=== PATIENT | female | born 1985 | race Caucasian/White ===

== ENCOUNTER → 2016-08-29 | Outpatient (CLI) | payer BC | END | disposition home or self-care (01) | LOC: LABWHC1 09:28 | PROVIDERS: ATTEND Physician Assistant Medical | DX: O26.90 Pregnancy related conditions, unspecified, unspecified trimester (principal); Z3A.00 Weeks of gestation of pregnancy not specified | CPT/HCPCS: 36415; 84702 ==

== ENCOUNTER 2016-09-09 14:07 | Emergency (ER) | payer BC ==
[2016-09-09 14:55] LABS: Appearance,Urine Cloudy (Clear); Bilirubin,Urine Negative (Negative); Glucose,Urine (UA) Negative (Negative); Ketones,Urine Negative (Negative); Leukocyte Esterase,Urine Large (Negative); Mucus,Urine Rare /hpf; Nitrite,Urine Negative (Negative); Particle Count 4579; Protein,Urine Negative (Negative); RBC,Urine 7 /hpf (0-5); Specific Gravity,Urine 1.021 (1.001-1.035); Squamous Epithelial Cell,Urine 4 /hpf (0-4); UA Billing (MACRO vs. MICRO) MICRO; Urobilinogen,Urine <2.0 mg/dL (<2.0); WBC,Urine 25 /hpf (0-5)
[2016-09-09] MEDS ORDERED: NITROFURANTOIN MONOHYD/M-CRYST 100 MG CAP PO STA (15:21)
[2016-09-09] MEDS ORDERED: PHENAZOPYRIDINE 100 MG TAB PO STA (15:21)
--- NOTE | 2016-09-09 15:22 | ED ---
Female Urogenital HPI - General Chief complaint: Urogenital Stated complaint: Abdomen Pain Time Seen by Provider: 09/09/16 14:22 Source: patient Mode of arrival: ambulatory Limitations: no limitations - History of Present Illness MD Complaint: dysuria, pelvic pain Onset/Timin -: days(s) Location: suprapubic Radiation: non-radiating Severity: mild Quality: cramping Consistency: constant Improves with: none Worsens with: urination - Related Data Home Medications Medication Instructions Recorded Confirmed Hyoscyamine Sulfate [Levbid] 0.375 mg PO BID 11/21/15 06/16/16 Hyoscyamine Sulfate [Levsin] 0.125 mg SUBLINGUAL Q4H 11/21/15 06/16/16 Lysine 500 mg PO DAILY 11/21/15 06/16/16 Sertraline [Zoloft] 25 mg PO DAILY 11/21/15 06/16/16 Verapamil HCl [Verapamil ER] 120 mg PO DAILY 11/21/15 06/16/16 Fluticasone/Vilanterol [Breo 1 puff INHALATION RT-BID 12/01/15 06/16/16 Ellipta 200-25 Mcg INH] Ibuprofen [Motrin] 800 mg PO Q8HR PRN 06/16/16 06/16/16 Naltrexone HCl/Bupropion HCl 2 tab PO BID 06/16/16 06/16/16 [Contrave ER 8-90 mg Tablet] Previous Rx's Medication Instructions Recorded Diazepam [Valium] 5 mg PO HS #10 tab 06/16/16 Hydrocodone/Acetaminophen [[place] 1 each PO Q4HR PRN #10 tab 06/16/16 5-325] Ibuprofen [Motrin] 600 mg PO Q6HR PRN #20 tab 06/16/16 Orphenadrine [Norflex] 100 mg PO Q12H #20 tablet.er 06/16/16 Nitrofurantoin Monohyd/M-Cryst 100 mg PO Q12HR #6 cap 09/09/16 [Macrobid] Phenazopyridine [Pyridium] 100 mg PO TID #6 tablet 09/09/16 Allergies Allergy/AdvReac Type Severity Reaction Status Date / Time azithromycin Allergy Rash/Hives Verified 06/16/16 07:44 [From Zithromax Z-Isauro] cephalexin monohydrate Allergy Rash/Hives Verified 06/16/16 07:44 [From Keflex] sulfamethoxazole Allergy Rash/Hives Verified 06/16/16 07:44 [From Bactrim] trimethoprim [From Bactrim] Allergy Rash/Hives Verified 06/16/16 07:44 Review of Systems ROS Statement: Those systems with pertinent positive or pertinent negative responses have been documented in the HPI. ROS Other: All systems not noted in ROS Statement are negative. Constitutional: Denies: fever, chills Respiratory: Denies: cough, dyspnea Cardiovascular: Denies: chest pain, palpitations, edema Gastrointestinal: Reports: as per HPI, abdominal pain. Denies: nausea, vomiting , diarrhea, constipation Genitourinary: Reports: urgency, dysuria, frequency. Denies: hematuria, discharge, abnormal menses, dyspareunia Musculoskeletal: Denies: back pain Skin: Denies: rash Neurological: Denies: headache Past Medical History Additional Past Medical History / Comment(s): migraine, GI issues, ovarian cyst History of Any Multi-Drug Resistant Organisms: C-DIFF Date of last positivie culture/infection: 01/2015 Past Surgical History: Appendectomy, Breast Surgery Additional Past Surgical History / Comment(s): IUD INSERTION 01/2013. BENIGN TUMOR REMOVED FROM BREAST Past Anesthesia/Blood Transfusion Reactions: No Reported Reaction Past Psychological History: Anxiety, Depression Smoking Status: Current every day smoker Past Alcohol Use History: Occasional Past Drug Use History: None Reported - Past Family History Mother Family Medical History: No Reported History General Exam Limitations: no limitations General appearance: alert, in no apparent distress Head exam: Present: atraumatic, normocephalic Respiratory exam: Present: normal lung sounds bilaterally. Absent: respiratory distress, wheezes, rales, rhonchi, stridor Cardiovascular Exam: Present: regular rate, normal rhythm, normal heart sounds. Absent: systolic murmur, diastolic murmur, rubs, gallop GI/Abdominal exam: Present: soft. Absent: distended, tenderness, guarding, rebound, rigid, mass, hernia Extremities exam: Present: normal inspection, normal capillary refill. Absent: pedal edema, calf tenderness Back exam: Absent: CVA tenderness (R), CVA tenderness (L) Skin exam: Present: warm, dry, intact, normal color. Absent: rash Course Vital Signs 09/09/16 09/09/16 14:09 15:57 Temperature 99.8 F H 99.7 F H Pulse Rate 87 82 Respiratory 20 18 Rate Blood Pressure 167/79 159/84 O2 Sat by Pulse 98 99 Oximetry Medical Decision Making - Lab Data Lab Results 09/09/16 09/09/16 Range/Units 14:30 14:30 Urine Color Yellow Urine Appearance Cloudy H (Clear) Urine pH 6.0 (5.0-8.0) Ur Specific [place] 1.021 (1.001-1.035) Urine Protein Negative (Negative) Urine Glucose (UA) Negative (Negative) Urine Ketones Negative (Negative) Urine Blood Negative (Negative) Urine Nitrate Negative (Negative) Urine Bilirubin Negative (Negative) Urine Urobilinogen <2.0 (<2.0) mg/dL Ur Leukocyte Esterase Large H (Negative) Urine RBC 7 H (0-5) /hpf Urine WBC 25 H (0-5) /hpf Ur Squamous Epith Cells 4 (0-4) /hpf Urine Mucus Rare H (None) /hpf Urine HCG, Qual Not Detected (Not Detectd) Disposition Clinical Impression: Urinary tract infection Disposition: HOME SELF-CARE Condition: Fair Instructions: Urinary Tract Infection in Women (ED) Prescriptions: Nitrofurantoin Monohyd/M-Cryst [Macrobid] 100 mg PO Q12HR #6 cap Phenazopyridine [Pyridium] 100 mg PO TID #6 tablet Referrals: Margy Crowell DO [Primary Care Provider] - 1-2 days
[2016-09-09 15:58] VITALS: BP 159/84; PULSE 82; RESP 18; TEMP 99.7
== END 2016-09-09 15:57 | disposition home or self-care (01) ==
LOC: EC 14:07
DX: N39.0 Urinary tract infection, site not specified (principal); F41.9 Anxiety disorder, unspecified; F32.9 Major depressive disorder, single episode, unspecified; Z79.899 Other long term (current) drug therapy; Z88.1 Allergy status to other antibiotic agents; Z88.2 Allergy status to sulfonamides; F17.200 Nicotine dependence, unspecified, uncomplicated; Z90.49 Acquired absence of other specified parts of digestive tract; Z86.69 Personal history of other diseases of the nervous system and sense organs; Z87.42 Personal history of other diseases of the female genital tract
CPT/HCPCS: 81001; 81025; 99284

== ENCOUNTER → 2016-10-23 | Outpatient (CLI) | payer BC ==
--- NOTE | 2016-10-23 20:37 | US ---
EXAMINATION TYPE: US kidneys/renal and bladder DATE OF EXAM: 10/23/2016 4:50 PM COMPARISON: NONE CLINICAL HISTORY: R10.9 Flank Pain left right. EXAM MEASUREMENTS: Right Kidney: 11.7 x 3.5 x 5.4 cm Left Kidney: 11.3 x 6.3 x 5.5 cm Right Kidney: No hydronephrosis or masses seen Left Kidney: inferior pole obscured by overlying bowel gas, appears wnl Bladder: wnl Bilateral Jets seen: Yes There is no evidence for hydronephrosis at this point in time. No nephrolithiasis is seen. No angella s are identified. The urinary bladder is anechoic. Bilateral ureteral jets are seen. IMPRESSION: No definite abnormality identified.
== END | disposition home or self-care (01) ==
LOC: RADUSWWP 16:20
PROVIDERS: ATTEND Family Medicine
DX: N39.0 Urinary tract infection, site not specified (principal); R10.9 Unspecified abdominal pain
CPT/HCPCS: 76770

== ENCOUNTER 2017-05-09 18:01 | Emergency (ER) | payer BC ==
[2017-05-09 18:08] VITALS: BP 150/67; PULSE 89; RESP 16; TEMP 98.8
--- NOTE | 2017-05-09 18:47 | ED ---
Extremity Problem HPI - General Chief complaint: Extremity Problem,Nontraumatic Stated complaint: left elbow pain Time Seen by Provider: 05/09/17 18:23 Source: patient, RN notes reviewed Mode of arrival: ambulatory Limitations: no limitations - History of Present Illness Initial comments: This is a 31-year-old female who presents to the emergency department with chief complaint of left elbow pain. She denies any specific injury or trauma. Patient states that approximately 2-3 weeks ago she began to experience intermittent left elbow pain. Over the last 2-3 days the pain has increased in frequency and intensity. She states pain is only present with movement of her elbow. She describes the pain as sharp and shooting, sometimes with radiation to her left hand. She reports that sometimes her left hand feels numb. At its worst, she rates the pain as 9/10. Currently pain is rated 5/10. Denies any back pain or neck pain. Denies fever, chills, chest pain, shortness of breath, abdominal pain, nausea or vomiting, constipation or diarrhea, dysuria or hematuria, headache or vision changes. - Related Data Home Medications Medication Instructions Recorded Confirmed Hyoscyamine Sulfate [Levbid] 0.375 mg PO BID 11/21/15 06/16/16 Hyoscyamine Sulfate [Levsin] 0.125 mg SUBLINGUAL Q4H 11/21/15 06/16/16 Lysine 500 mg PO DAILY 11/21/15 06/16/16 Sertraline [Zoloft] 25 mg PO DAILY 11/21/15 06/16/16 Verapamil HCl [Verapamil ER] 120 mg PO DAILY 11/21/15 06/16/16 Fluticasone/Vilanterol [Breo 1 puff INHALATION RT-BID 12/01/15 06/16/16 Ellipta 200-25 Mcg INH] Ibuprofen [Motrin] 800 mg PO Q8HR PRN 06/16/16 06/16/16 Naltrexone HCl/Bupropion HCl 2 tab PO BID 06/16/16 06/16/16 [Contrave ER 8-90 mg Tablet] Previous Rx's Medication Instructions Recorded Diazepam [Valium] 5 mg PO HS #10 tab 06/16/16 Hydrocodone/Acetaminophen [[place] 1 each PO Q4HR PRN #10 tab 06/16/16 5-325] Ibuprofen [Motrin] 600 mg PO Q6HR PRN #20 tab 06/16/16 Orphenadrine [Norflex] 100 mg PO Q12H #20 tablet.er 06/16/16 Nitrofurantoin Monohyd/M-Cryst 100 mg PO Q12HR #6 cap 09/09/16 [Macrobid] Phenazopyridine [Pyridium] 100 mg PO TID #6 tablet 09/09/16 Ibuprofen 600 mg PO Q6HR #30 tablet 05/09/17 Allergies Allergy/AdvReac Type Severity Reaction Status Date / Time azithromycin Allergy Rash/Hives Verified 05/09/17 18:08 [From Zithromax Z-Isauro] cephalexin monohydrate Allergy Rash/Hives Verified 05/09/17 18:08 [From Keflex] sulfamethoxazole Allergy Rash/Hives Verified 05/09/17 18:08 [From Bactrim] trimethoprim [From Bactrim] Allergy Rash/Hives Verified 05/09/17 18:08 Review of Systems ROS Statement: Those systems with pertinent positive or pertinent negative responses have been documented in the HPI. ROS Other: All systems not noted in ROS Statement are negative. Past Medical History Additional Past Medical History / Comment(s): migraine, GI issues, ovarian cyst History of Any Multi-Drug Resistant Organisms: C-DIFF Date of last positivie culture/infection: 01/2015 Past Surgical History: Appendectomy, Breast Surgery Additional Past Surgical History / Comment(s): IUD INSERTION 01/2013. BENIGN TUMOR REMOVED FROM BREAST Past Anesthesia/Blood Transfusion Reactions: No Reported Reaction Past Psychological History: Anxiety, Depression Smoking Status: Former smoker Past Alcohol Use History: Rare Past Drug Use History: None Reported - Past Family History Mother Family Medical History: No Reported History General Exam - General Exam Comments Initial Comments: General: Awake and alert, well-developed; in no apparent distress. HEENT: Head atraumatic, normocephalic. Pupils are equal, round and reactive to light. Extraocular movements intact. Neck: Supple. Normal ROM. Cardiovascular: Regular rate and rhythm. No murmurs, rubs or gallops. Chest symmetrical. Respiratory: Lungs clear to auscultation bilaterally. No wheezes, rales or rhonchi. Normal respiratory effort with no use of accessory muscles. Musculoskeletal: Left elbow has normal range of motion. No bony point tenderness or tenderness on palpation of muscular and soft tissue structures surrounding the elbow. Sensation is intact. Strength 5/5. Radial pulses 2+, equal and palpable bilaterally. Skin: [place], warm and dry without rashes or lesions. Neurological: Alert and oriented x3. CN II-XII grossly intact. Speech is fluent and answers are appropriate. No focal neuro deficits. Psychiatric: Normal mood and affect. No overt signs of depression or anxiety noted. Limitations: no limitations Course Vital Signs 05/09/17 18:04 Temperature 98.8 F Pulse Rate 89 Respiratory 16 Rate Blood Pressure 150/67 O2 Sat by Pulse 98 Oximetry Medical Decision Making - Medical Decision Making This is a 31-year-old female who presents with chief complaint of left elbow pain. X-ray revealed no evidence of fracture, dislocation or joint effusion. This case was discussed with attending physician, Dr. Kat. Patient will be provided with follow-up to orthopedics as well as a prescription for ibuprofen. Patient is in agreement to the plan and voiced understanding. All questions were answered. Disposition Clinical Impression: Left elbow pain Disposition: HOME SELF-CARE Condition: Good Instructions: Arthralgia (ED) Additional Instructions: Please take medications as prescribed. Please follow up with Dr. iHnds, orthopedics. Please follow up with primary care provider within 1-2 days. Return to emergency department if symptoms should worsen or any concerns arise. Prescriptions: Ibuprofen 600 mg PO Q6HR #30 tablet Referrals: Margy Crowell DO [Primary Care Provider] - 1-2 days Landon Hinds MD [Medical Doctor] - 1-2 days Time of Disposition: 19:03
--- NOTE | 2017-05-09 18:53 | XR ---
EXAMINATION TYPE: XR elbow complete LT DATE OF EXAM: 05/09/2017 COMPARISON: NONE HISTORY: Elbow pain for 2 weeks TECHNIQUE: 4 views FINDINGS: I see no fracture nor dislocation. Joint spaces are normal. There is no sign of elbow joint effusion. IMPRESSION: Normal left elbow
== END 2017-05-09 19:16 | disposition home or self-care (01) ==
LOC: EC 18:01
DX: M25.522 Pain in left elbow (principal); R20.0 Anesthesia of skin; F32.9 Major depressive disorder, single episode, unspecified; F41.9 Anxiety disorder, unspecified; Z87.891 Personal history of nicotine dependence; Z79.51 Long term (current) use of inhaled steroids; Z79.899 Other long term (current) drug therapy; Z88.1 Allergy status to other antibiotic agents; Z88.2 Allergy status to sulfonamides
CPT/HCPCS: 99283

== ENCOUNTER 2017-07-24 22:05 | Emergency (ER) | payer BC ==
[2017-07-24 22:09] VITALS: BP 128/91; PULSE 77; RESP 18; TEMP 98.6
--- NOTE | 2017-07-24 22:40 | ED ---
URI HPI - General Chief Complaint: Upper Respiratory Infection Stated Complaint: cough Time Seen by Provider: 07/24/17 22:18 Source: patient, RN notes reviewed Mode of arrival: ambulatory Limitations: no limitations - History of Present Illness Initial Comments: This is a 32-year-old female who presents to the emergency department with a chief complaint of cough. Patient states that she has felt generally unwell since Saturday. She states that she has had a dry cough and that it feels like her chest is burning. She also complains of nasal congestion as well as myalgias. Patient states that she has been eating and drinking well. She states that she's been taking DayQuil with some relief. Patient states that she was diagnosed with bronchitis in May. She states that at that time her chest x-ray revealed signs of asthma, however she has never been formally diagnosed with asthma. Denies fever, chills, chest pain, shortness of breath, abdominal pain, nausea or vomiting, constipation or diarrhea, dysuria or hematuria, numbness or tingling, headache or vision changes. - Related Data Home Medications Medication Instructions Recorded Confirmed Hyoscyamine Sulfate [Levbid] 0.375 mg PO BID 11/21/15 05/09/17 Hyoscyamine Sulfate [Levsin] 0.125 mg SUBLINGUAL Q4H 11/21/15 05/09/17 Lysine 500 mg PO DAILY 11/21/15 05/09/17 Verapamil HCl [Verapamil ER] 120 mg PO DAILY 11/21/15 05/09/17 Fluticasone/Vilanterol [Breo 1 puff INHALATION RT-DAILY 05/09/17 05/09/17 Ellipta 100-25 Mcg Inhaler] PARoxetine HCL [Paxil] 60 mg PO HS 05/09/17 05/09/17 busPIRone HCl [Buspar] 10 mg PO BID 05/09/17 05/09/17 Previous Rx's Medication Instructions Recorded Ibuprofen 600 mg PO Q6HR #30 tablet 05/09/17 Allergies Allergy/AdvReac Type Severity Reaction Status Date / Time azithromycin Allergy Rash/Hives Verified 07/24/17 22:09 [From Zithromax Z-Isauro] cephalexin monohydrate Allergy Rash/Hives Verified 07/24/17 22:09 [From Keflex] sulfamethoxazole Allergy Rash/Hives Verified 07/24/17 22:09 [From Bactrim] trimethoprim [From Bactrim] Allergy Rash/Hives Verified 07/24/17 22:09 Review of Systems ROS Statement: Those systems with pertinent positive or pertinent negative responses have been documented in the HPI. ROS Other: All systems not noted in ROS Statement are negative. Past Medical History Past Medical History: Asthma Additional Past Medical History / Comment(s): migraine, GI issues, ovarian cyst History of Any Multi-Drug Resistant Organisms: C-DIFF Date of last positivie culture/infection: 01/2015 Past Surgical History: Appendectomy, Breast Surgery Additional Past Surgical History / Comment(s): IUD INSERTION 01/2013. BENIGN TUMOR REMOVED FROM BREAST Past Anesthesia/Blood Transfusion Reactions: No Reported Reaction Past Psychological History: Anxiety, Depression Smoking Status: Former smoker Past Alcohol Use History: Rare Past Drug Use History: None Reported - Past Family History Mother Family Medical History: No Reported History General Exam - General Exam Comments Initial Comments: General: Awake and alert, well-developed; in no apparent distress. HEENT: Head atraumatic, normocephalic. Pupils are equal, round and reactive to light. Extraocular movements intact. Oropharynx moist without erythema or exudate. Neck: Supple. Normal ROM. Cardiovascular: Regular rate and rhythm. No murmurs, rubs or gallops. Chest symmetrical. Respiratory: Lungs clear to auscultation bilaterally. No wheezes, rales or rhonchi. Normal respiratory effort with no use of accessory muscles. Musculoskeletal: Normal ROM, no tenderness bilateral upper and lower extremities. Ambulating normally. Skin: [place], warm and dry without rashes or lesions. Neurological: Alert and oriented x3. CN II-XII grossly intact. Speech is fluent and answers are appropriate. No focal neuro deficits. Psychiatric: Normal mood and affect. No overt signs of depression or anxiety noted. Limitations: no limitations Course Vital Signs 07/24/17 22:05 Temperature 98.6 F Pulse Rate 77 Respiratory 18 Rate Blood Pressure 128/91 O2 Sat by Pulse 100 Oximetry Medical Decision Making - Medical Decision Making This is a 32-year-old female presents to the emergency department with chief complaint of cough. Patient denies any fevers. Chest x-ray revealed no acute abnormalities. Influenza was negative. Patient's vital signs are stable and she is afebrile. She is in no acute distress. Patient likely suffering from bronchitis. She will be discharged home. Return parameters were discussed. She is in agreement and voices understanding. All questions were answered. - Radiology Data Radiology results: report reviewed Chest x-ray findings: No consolidation, pneumothorax or cardiomegaly. Impression: Normal chest x-ray. Disposition Clinical Impression: Bronchitis Disposition: HOME SELF-CARE Condition: Good Instructions: Acute Bronchitis (ED) Additional Instructions: Please follow up with primary care provider within 1-2 days. Return to emergency department if symptoms should worsen or any concerns arise. Referrals: Margy Crowell DO [Primary Care Provider] - 1-2 days Time of Disposition: 23:05
--- NOTE | 2017-07-24 22:50 | XR ---
EXAM: XR Chest, 2 Views CLINICAL HISTORY: Reason: cough TECHNIQUE: Frontal and lateral views of the chest. COMPARISON: 12/01/15 FINDINGS: Lungs: Unremarkable. No consolidation. Pleural space: Unremarkable. No pneumothorax. Heart: Unremarkable. No cardiomegaly. Mediastinum: Unremarkable. Bones/joints: Unremarkable. IMPRESSION: Normal chest x-rays.
== END 2017-07-24 23:15 | disposition home or self-care (01) ==
LOC: EC 22:05
DX: J40 Bronchitis, not specified as acute or chronic (principal); M79.7 Fibromyalgia; J45.909 Unspecified asthma, uncomplicated; F32.9 Major depressive disorder, single episode, unspecified; F41.9 Anxiety disorder, unspecified; Z87.891 Personal history of nicotine dependence; Z79.51 Long term (current) use of inhaled steroids; Z79.899 Other long term (current) drug therapy; Z88.1 Allergy status to other antibiotic agents; Z87.19 Personal history of other diseases of the digestive system
CPT/HCPCS: 71020; 87502; 99283

== ENCOUNTER 2017-09-17 16:25 | Emergency (ER) | payer BC ==
[2017-09-17 16:32] VITALS: BP 138/84; PULSE 90; RESP 18; TEMP 99.4
--- NOTE | 2017-09-17 16:58 | ED ---
Extremity Problem HPI - General Chief complaint: Extremity Problem,Nontraumatic Stated complaint: Swollen Arm at puncture site Time Seen by Provider: 09/17/17 16:34 Source: patient, RN notes reviewed Mode of arrival: ambulatory Limitations: no limitations - History of Present Illness Initial comments: This is a 32-year-old female who presents to the emergency department with chief complaint of left arm pain. Patient states that she attempted to donate plasma this past Saturday. She states that they were unable to get a vein and that she believes that they were poking at her tendon. Patient states that the site is now tender and that there is redness along the crease of her left elbow. Patient denies any fevers or chills. She denies shortness of breath or chest pain, abdominal pain, nausea or vomiting. - Related Data Home Medications Medication Instructions Recorded Confirmed Hyoscyamine Sulfate [Levbid] 0.375 mg PO BID 11/21/15 05/09/17 Hyoscyamine Sulfate [Levsin] 0.125 mg SUBLINGUAL Q4H 11/21/15 05/09/17 Lysine 500 mg PO DAILY 11/21/15 05/09/17 Verapamil HCl [Verapamil ER] 120 mg PO DAILY 11/21/15 05/09/17 Fluticasone/Vilanterol [Breo 1 puff INHALATION RT-DAILY 05/09/17 05/09/17 Ellipta 100-25 Mcg Inhaler] PARoxetine HCL [Paxil] 60 mg PO HS 05/09/17 05/09/17 busPIRone HCl [Buspar] 10 mg PO BID 05/09/17 05/09/17 Previous Rx's Medication Instructions Recorded Ibuprofen 600 mg PO Q6HR #30 tablet 05/09/17 Allergies Allergy/AdvReac Type Severity Reaction Status Date / Time azithromycin Allergy Rash/Hives Verified 09/17/17 16:32 [From Zithromax Z-Isauro] cephalexin monohydrate Allergy Rash/Hives Verified 09/17/17 16:32 [From Keflex] sulfamethoxazole Allergy Rash/Hives Verified 09/17/17 16:32 [From Bactrim] trimethoprim [From Bactrim] Allergy Rash/Hives Verified 09/17/17 16:32 Review of Systems ROS Statement: Those systems with pertinent positive or pertinent negative responses have been documented in the HPI. ROS Other: All systems not noted in ROS Statement are negative. Past Medical History Past Medical History: Asthma Additional Past Medical History / Comment(s): migraine, GI issues, ovarian cyst History of Any Multi-Drug Resistant Organisms: C-DIFF Date of last positivie culture/infection: 01/2015 Past Surgical History: Appendectomy, Breast Surgery Additional Past Surgical History / Comment(s): IUD INSERTION 01/2013. BENIGN TUMOR REMOVED FROM BREAST Past Anesthesia/Blood Transfusion Reactions: No Reported Reaction Past Psychological History: Anxiety, Depression Smoking Status: Former smoker Past Alcohol Use History: Rare Past Drug Use History: None Reported - Past Family History Mother Family Medical History: No Reported History General Exam - General Exam Comments Initial Comments: General: Awake and alert, well-developed; in no apparent distress. HEENT: Head atraumatic, normocephalic. Pupils are equal, round and reactive to light. Extraocular movements intact. Oropharynx moist without erythema or exudate. Neck: Supple. Normal ROM. Cardiovascular: Regular rate and rhythm. No murmurs, rubs or gallops. Chest symmetrical. Respiratory: Lungs clear to auscultation bilaterally. No wheezes, rales or rhonchi. Normal respiratory effort with no use of accessory muscles. Musculoskeletal: Normal ROM of the left elbow. There is a venipuncture site noted at left antecubital regions with surrounding ecchymosis. No erythema, warmth or tenderness of the site. There is redness along the crease of her left elbow. No signs of infection. Sensation is intact. Radial pulses are 2+ equal and palpable bilaterally. Skin: [employer], warm and dry without rashes. Neurological: Alert and oriented x3. CN II-XII grossly intact. Speech is fluent and answers are appropriate. No focal neuro deficits. Psychiatric: Normal mood and affect. No overt signs of depression or anxiety noted. Limitations: no limitations Course Vital Signs 09/17/17 16:29 Temperature 99.4 F Pulse Rate 90 Respiratory 18 Rate Blood Pressure 138/84 O2 Sat by Pulse 98 Oximetry Medical Decision Making - Medical Decision Making This is a 32-year-old female who presents to the emergency department with chief complaint of left arm pain. Patient is concerned that she may have an infection from attempts at venipuncture while donating plasma this past Saturday. She states that they were unable to perform accurate venipuncture and she was unable to donate. She states she is concerned because she has noticed some redness in the crease of her left elbow and the area is tender. On physical examination, venipuncture site is noted in the left antecubital region with surrounding ecchymosis. This area does not have any warmth, redness or tenderness. No streaking of redness noted. Patient denies any fevers or chills. Vital signs are stable. Patient is in no acute distress and will be discharged home. Return parameters were discussed. Patient is in agreement with plan and voices understanding. All questions were answered. Disposition Clinical Impression: Arm bruise Disposition: HOME SELF-CARE Condition: Good Instructions: Contusion in Adults (ED) Additional Instructions: Please follow up with primary care provider within 1-2 days. Return to emergency department if symptoms should worsen or any concerns arise. Referrals: Margy Crowell DO [Primary Care Provider] - 1-2 days Time of Disposition: 16:57
== END 2017-09-17 17:07 | disposition home or self-care (01) ==
LOC: EC 16:25
DX: T81.72XA Complication of vein following a procedure, not elsewhere classified, initial encounter (principal); J45.909 Unspecified asthma, uncomplicated; F32.9 Major depressive disorder, single episode, unspecified; F41.9 Anxiety disorder, unspecified; Z79.51 Long term (current) use of inhaled steroids; Z79.899 Other long term (current) drug therapy; Z88.1 Allergy status to other antibiotic agents; Z88.2 Allergy status to sulfonamides
CPT/HCPCS: 99283

== ENCOUNTER → 2017-11-28 | Outpatient (CLI) | payer BC ==
--- NOTE | 2017-11-28 16:10 | XR ---
Right foot HISTORY: Pain and swelling 3 views of the right foot Bone mineralization, joint spaces and alignment are maintained. No fracture or dislocation. There is soft tissue swelling present. IMPRESSION: No acute bone abnormality.
== END | disposition home or self-care (01) ==
LOC: RADXRMAIN 15:02
PROVIDERS: ATTEND Family Medicine
DX: M79.673 Pain in unspecified foot (principal)

== ENCOUNTER 2017-12-31 21:55 | Emergency (ER) | payer BC ==
[2017-12-31] MEDS ORDERED: methylPREDNISolone SOD SUCCI 125 MG/2 ML VIAL IV STA (22:45)
[2017-12-31] MEDS ORDERED: IPRATROPIUM-ALBUTEROL 3 ML NEB INHALATION STA (22:45)
[2017-12-31] MEDS ORDERED: SODIUM CHLORIDE 0.9% 1,000 ML IV STA (22:45)
--- NOTE | 2017-12-31 22:46 | ED ---
SOB HPI - General Chief Complaint: Shortness of Breath Stated Complaint: SOB/Pain to chest Time Seen by Provider: 12/31/17 22:28 Source: patient, RN notes reviewed, old records reviewed Mode of arrival: ambulatory Limitations: no limitations - History of Present Illness Initial Comments: This patient is a 32 year old female with history of obstructive lung disease presents with shortness of breath and pain with taking a deep breath in both of her lungs. She states that these symptoms have been for 1 week, but she had a severe coughing fit today. Symptoms reoocured after DC steriods as prescribed by pulmonology. She states she has used albuterol with little relief. She denies any palpitation, nausea, vomiting, fever, productive cough. - Related Data Home Medications Medication Instructions Recorded Confirmed Lysine 500 mg PO HS 11/21/15 12/31/17 Verapamil HCl [Verapamil ER] 120 mg PO HS 11/21/15 12/31/17 Fluticasone/Vilanterol [Breo 1 puff INHALATION RT-DAILY 05/09/17 12/31/17 Ellipta 100-25 Mcg Inhaler] busPIRone HCl [Buspar] 10 mg PO HS 05/09/17 12/31/17 Albuterol Inhaler [Ventolin Hfa 1 - 2 puff INHALATION RT-Q6H PRN 12/31/17 Inhaler] Ascorbic Acid [Vitamin C] 500 mg PO HS 12/31/17 12/31/17 [id number] Acid 1 cap PO HS 12/31/17 12/31/17 [-U Capsule (formulary)] Previous Rx's Medication Instructions Recorded Albuterol Inhaler [Ventolin Hfa 1 - 2 puff INHALATION RT-Q6H PRN 01/01/18 Inhaler] #1 inhaler predniSONE 10 mg PO DAILY #15 tab 01/01/18 Allergies Allergy/AdvReac Type Severity Reaction Status Date / Time azithromycin Allergy Rash/Hives Verified 12/31/17 22:15 [From Zithromax Z-Isauro] cephalexin monohydrate Allergy Rash/Hives Verified 12/31/17 22:15 [From Keflex] sulfamethoxazole Allergy Rash/Hives Verified 12/31/17 22:15 [From Bactrim] trimethoprim [From Bactrim] Allergy Rash/Hives Verified 12/31/17 22:15 Review of Systems ROS Statement: Those systems with pertinent positive or pertinent negative responses have been documented in the HPI. ROS Other: All systems not noted in ROS Statement are negative. Past Medical History Past Medical History: Asthma Additional Past Medical History / Comment(s): migraine, GI issues, ovarian cyst History of Any Multi-Drug Resistant Organisms: C-DIFF Date of last positivie culture/infection: 01/2015 Past Surgical History: Appendectomy, Breast Surgery Additional Past Surgical History / Comment(s): IUD INSERTION 01/2013. BENIGN TUMOR REMOVED FROM BREAST Past Anesthesia/Blood Transfusion Reactions: No Reported Reaction Past Psychological History: Anxiety, Depression Smoking Status: Former smoker Past Alcohol Use History: Rare Past Drug Use History: None Reported - Past Family History Mother Family Medical History: No Reported History General Exam - General Exam Comments Initial Comments: This is a well appearing 32 year old female, no distress Limitations: no limitations General appearance: alert, in no apparent distress Head exam: Present: atraumatic, normocephalic, normal inspection Eye exam: Present: normal appearance, PERRL, EOMI. Absent: scleral icterus, conjunctival injection, periorbital swelling ENT exam: Present: normal exam, mucous membranes moist Neck exam: Present: normal inspection. Absent: tenderness, meningismus, lymphadenopathy Respiratory exam: Present: normal lung sounds bilaterally, decreased breath sounds. Absent: respiratory distress, wheezes, rales, rhonchi, stridor Cardiovascular Exam: Present: regular rate, normal rhythm, normal heart sounds. Absent: systolic murmur, diastolic murmur, rubs, gallop, clicks GI/Abdominal exam: Present: soft, normal bowel sounds. Absent: distended, tenderness, guarding, rebound, rigid Extremities exam: Present: normal inspection, full ROM, normal capillary refill. Absent: tenderness, pedal edema, joint swelling, calf tenderness Back exam: Present: normal inspection Neurological exam: Present: alert, oriented X3, CN II-XII intact Psychiatric exam: Present: normal affect, normal mood Skin exam: Present: warm, dry, intact, normal color. Absent: rash Course Vital Signs 12/31/17 12/31/17 12/31/17 22:05 22:24 22:47 Temperature 98.4 F Pulse Rate 74 72 Respiratory 18 19 Rate Blood Pressure 115/78 O2 Sat by Pulse 100 Oximetry 12/31/17 01/01/18 23:01 00:37 Temperature 98.2 F Pulse Rate 76 81 Respiratory 18 Rate Blood Pressure 143/94 O2 Sat by Pulse 99 Oximetry Medical Decision Making - Medical Decision Making This patient is a 32 year old femael with CC of shortness of breath, and similiar to asthma attack today. She recently was DC from steroids by PCP. She has diminished lung sounds, no significant wheezing. Patient given IV solumedrol , CXR, fluids, EKG and Douneb. She feels better after douneb. Labs are unremarkable, EKG is normal. Normal Oxygen saturation. No coughing in ED. Discussed restart steriods and inhaler. Discussed PCP and pulm follow up. - Lab Data Result diagrams: 12/31/17 23:08 12/31/17 23:08 Lab Results 12/31/17 12/31/17 12/31/17 Range/Units 23:08 23:08 23:08 WBC 12.7 H (3.8-10.6) k/uL RBC 4.68 (3.80-5.40) m/uL Hgb 14.0 (11.4-16.0) gm/dL Hct 40.9 (34.0-46.0) % MCV 87.4 (80.0-100.0) fL MCH 30.0 (25.0-35.0) pg MCHC 34.3 (31.0-37.0) g/dL RDW 12.9 (11.5-15.5) % Plt Count 301 (150-450) k/uL Neutrophils % 65 % Lymphocytes % 25 % Monocytes % 5 % Eosinophils % 3 % Basophils % 0 % Neutrophils # 8.2 H (1.3-7.7) k/uL Lymphocytes # 3.2 (1.0-4.8) k/uL Monocytes # 0.7 (0-1.0) k/uL Eosinophils # 0.3 (0-0.7) k/uL Basophils # 0.1 (0-0.2) k/uL PT (9.0-12.0) sec INR (<1.2) APTT (22.0-30.0) sec Sodium 142 (137-145) mmol/L Potassium 4.0 (3.5-5.1) mmol/L Chloride 103 (98-107) mmol/L Carbon Dioxide 25 (22-30) mmol/L Anion Gap 14 mmol/L BUN 16 (7-17) mg/dL Creatinine 0.60 (0.52-1.04) mg/dL Est GFR (CKD-EPI)AfAm >90 (>60 ml/min/1.73 sqM) Est GFR (CKD-EPI)NonAf >90 (>60 ml/min/1.73 sqM) Glucose 104 H (74-99) mg/dL Calcium 9.3 (8.4-10.2) mg/dL Total Bilirubin 0.2 (0.2-1.3) mg/dL AST 16 (14-36) U/L ALT 24 (9-52) U/L Alkaline Phosphatase 72 (38-126) U/L Total Creatine Kinase 54 (30-135) U/L CK-MB (CK-2) 0.7 (0.0-2.4) ng/mL CK-MB (CK-2) Rel Index 1.3 Troponin I <0.012 (0.000-0.034) ng/mL Total Protein 6.7 (6.3-8.2) g/dL Albumin 3.9 (3.5-5.0) g/dL 12/31/17 Range/Units 23:08 WBC (3.8-10.6) k/uL RBC (3.80-5.40) m/uL Hgb (11.4-16.0) gm/dL Hct (34.0-46.0) % MCV (80.0-100.0) fL MCH (25.0-35.0) pg MCHC (31.0-37.0) g/dL RDW (11.5-15.5) % Plt Count (150-450) k/uL Neutrophils % % Lymphocytes % % Monocytes % % Eosinophils % % Basophils % % Neutrophils # (1.3-7.7) k/uL Lymphocytes # (1.0-4.8) k/uL Monocytes # (0-1.0) k/uL Eosinophils # (0-0.7) k/uL Basophils # (0-0.2) k/uL PT 9.6 (9.0-12.0) sec INR 1.0 (<1.2) APTT 25.1 (22.0-30.0) sec Sodium (137-145) mmol/L Potassium (3.5-5.1) mmol/L Chloride (98-107) mmol/L Carbon Dioxide (22-30) mmol/L Anion Gap mmol/L BUN (7-17) mg/dL Creatinine (0.52-1.04) mg/dL Est GFR (CKD-EPI)AfAm (>60 ml/min/1.73 sqM) Est GFR (CKD-EPI)NonAf (>60 ml/min/1.73 sqM) Glucose (74-99) mg/dL Calcium (8.4-10.2) mg/dL Total Bilirubin (0.2-1.3) mg/dL AST (14-36) U/L ALT (9-52) U/L Alkaline Phosphatase (38-126) U/L Total Creatine Kinase (30-135) U/L CK-MB (CK-2) (0.0-2.4) ng/mL CK-MB (CK-2) Rel Index Troponin I (0.000-0.034) ng/mL Total Protein (6.3-8.2) g/dL Albumin (3.5-5.0) g/dL 01/01/18 00:10 EKG shows normal sinus rhythm, normal EKG. Ventricular rate 74. HI intervals 144. QRS duration 94. QT QTc is 382/424 ms. No evidence of ST elevation or T- wave inversion. No speech or ventricular arrhythmias. - Radiology Data Radiology results: report reviewed CXR is negative for any acute process. Disposition Clinical Impression: Shortness of breath Disposition: HOME SELF-CARE Condition: Good Instructions: Asthma (ED), Bronchospasm (ED) Additional Instructions: Patient advised to take the steroids and using inhaler as prescribed. Follow- up with primary care provider. Prescriptions: Albuterol Inhaler [Ventolin Hfa Inhaler] 1 - 2 puff INHALATION RT-Q6H PRN #1 inhaler PRN Reason: Shortness Of Breath predniSONE 10 mg PO DAILY #15 tab Is patient prescribed a controlled substance at d/c from ED?: No When asked, does pt state using other controlled substances?: No If prescribed controlled substance>3 days was MAPS reviewed?: No If opioid is for acute pain is fill amount 7 days or less?: No If Rx opioid, was Start Talking consent form obtained?: No Referrals: Leonie Tariq DO [Primary Care Provider] - 1-2 days Time of Disposition: 00:09
[2017-12-31 23:18] LABS: Basophils # (A) 0.1 k/uL (0-0.2); Basophils % (A) 0 %; Eosinophils # (A) 0.3 k/uL (0-0.7); Eosinophils % (A) 3 %; HCT 40.9 % (34.0-46.0); Lymphocytes # (A) 3.2 k/uL (1.0-4.8); Lymphocytes % (A) 25 %; MCHC 34.3 g/dL (31.0-37.0); MCV 87.4 fL (80.0-100.0); Mean Platelet Volume 6.5; Monocytes # (A) 0.7 k/uL (0-1.0); Monocytes % (A) 5 %; Neutrophils # (A) 8.2 k/uL (1.3-7.7); Neutrophils % (A) 65 %; Platelet Count 301 k/uL (150-450); RBC 4.68 m/uL (3.80-5.40); RDW 12.9 % (11.5-15.5); WBC 12.7 k/uL (3.8-10.6)
[2017-12-31 23:26] LABS: Partial Thromboplastin Time 25.1 sec (22.0-30.0); Prothrombin Time 9.6 sec (9.0-12.0)
[2017-12-31 23:37] LABS: ALT 24 U/L (9-52); AST 16 U/L (14-36); Albumin 3.9 g/dL (3.5-5.0); Alkaline Phosphatase 72 U/L (38-126); Anion Gap 14 mmol/L; Blood Urea Nitrogen 16 mg/dL (7-17); Calcium 9.3 mg/dL (8.4-10.2); Carbon Dioxide 25 mmol/L (22-30); Chloride 103 mmol/L (98-107); Glucose 104 mg/dL (74-99); Sodium 142 mmol/L (137-145); Total Bilirubin 0.2 mg/dL (0.2-1.3); Total Protein 6.7 g/dL (6.3-8.2)
[2017-12-31 23:42] LABS: Creatine Kinase 54 U/L (30-135)
--- NOTE | 2017-12-31 23:48 | XR ---
EXAMINATION TYPE: XR chest 2V DATE OF EXAM: 12/31/2017 COMPARISON: 07/24/2017 HISTORY: Difficulty breathing TECHNIQUE: Frontal and lateral views of the chest are obtained. FINDINGS: Heart and mediastinum are normal. Lungs are clear. Diaphragm is normal. There are chest le ads. Bony thorax is intact. IMPRESSION: Normal chest. No change.
[2017-12-31 23:55] LABS: Creatine Kinase MB 0.7 ng/mL (0.0-2.4); Troponin I <0.012 ng/mL (0.000-0.034)
[2018-01-01 00:41] VITALS: BP 143/94; PULSE 81; RESP 18; TEMP 98.2
== END 2018-01-01 00:42 | disposition home or self-care (01) ==
LOC: EC 21:55
DX: R06.02 Shortness of breath (principal); R05 Cough; J45.909 Unspecified asthma, uncomplicated; F32.9 Major depressive disorder, single episode, unspecified; F41.9 Anxiety disorder, unspecified; Z86.018 Personal history of other benign neoplasm; Z87.891 Personal history of nicotine dependence; Z79.51 Long term (current) use of inhaled steroids; Z79.899 Other long term (current) drug therapy; Z88.1 Allergy status to other antibiotic agents; Z88.2 Allergy status to sulfonamides
CPT/HCPCS: 36415; 94640; 93005; 80053; 82550; 82553; 84484; 85025; 85610; 85730; 71046; 99285; 96374; 96361 ×2; J2930

== ENCOUNTER 2018-03-27 23:27 | Emergency (ER) | payer BC ==
[2018-03-27 23:32] VITALS: RESP 16; TEMP 98.1
[2018-03-27] MEDS ORDERED: KETOROLAC 30 MG/ML 1 ML VIAL IVP STA (23:42)
[2018-03-27] MEDS ORDERED: SODIUM CHLORIDE 0.9% 1,000 ML IV ONE (23:42)
[2018-03-27] MEDS ORDERED: METOCLOPRAMIDE 5 MG/ML 2 ML VIAL IVP STA (23:42)
[2018-03-27] MEDS ORDERED: diphenhydrAMINE 50 MG/ML 1 ML VIAL IVP STA (23:42)
--- NOTE | 2018-03-28 00:16 | ED ---
Headache HPI - General Chief Complaint: Headache Stated Complaint: Migraine Time Seen by Provider: 03/27/18 23:37 Mode of arrival: ambulatory Limitations: no limitations - History of Present Illness Initial Comments: 32-year-old female patient presents to the emergency department today for evaluation of migraine headache. Patient states she has had a headache for the last 12 hours. She reports that the headache is frontal. She does report light sensitivity, sound sensitivity, and blurred vision. States that she is having some tingling around her lips and in her fingertips. She does report as well that she is nauseated but has not vomited. Patient states that her symptoms are consistent with her usual migraine pattern and denies any new symptoms. States that she did take her home medications as well as increase fluids throughout the day and it did not help. She denies any weakness, dizziness, double vision, fever, or chills. Denies any recent head injury. Patient denies any recent rash, shortness breath, chest pain, abdominal pain, diarrhea, constipation, back pain, hematuria, dysuria, urinary urgency, urinary frequency, or any other complaints. Denies any chance of . States she had an IUD recently placed and had negative test at that time. - Related Data Home Medications Medication Instructions Recorded Confirmed Lysine 500 mg PO HS 11/21/15 12/31/17 Verapamil HCl [Verapamil ER] 120 mg PO HS 11/21/15 12/31/17 Fluticasone/Vilanterol [Breo 1 puff INHALATION RT-DAILY 05/09/17 12/31/17 Ellipta 100-25 Mcg Inhaler] busPIRone HCl [Buspar] 10 mg PO HS 05/09/17 12/31/17 Albuterol Inhaler [Ventolin Hfa 1 - 2 puff INHALATION RT-Q6H PRN 12/31/17 Inhaler] Ascorbic Acid [Vitamin C] 500 mg PO HS 12/31/17 12/31/17 [id number] Acid 1 cap PO HS 12/31/17 12/31/17 [-U Capsule (formulary)] Previous Rx's Medication Instructions Recorded Albuterol Inhaler [Ventolin Hfa 1 - 2 puff INHALATION RT-Q6H PRN 01/01/18 Inhaler] #1 inhaler predniSONE 10 mg PO DAILY #15 tab 01/01/18 Allergies Allergy/AdvReac Type Severity Reaction Status Date / Time azithromycin Allergy Rash/Hives Verified 03/27/18 23:32 [From Zithromax Z-Isauro] cephalexin monohydrate Allergy Rash/Hives Verified 03/27/18 23:32 [From Keflex] sulfamethoxazole Allergy Rash/Hives Verified 03/27/18 23:32 [From Bactrim] trimethoprim [From Bactrim] Allergy Rash/Hives Verified 03/27/18 23:32 Review of Systems ROS Statement: Those systems with pertinent positive or pertinent negative responses have been documented in the HPI. ROS Other: All systems not noted in ROS Statement are negative. Past Medical History Past Medical History: Asthma Additional Past Medical History / Comment(s): migraine, GI issues, ovarian cyst History of Any Multi-Drug Resistant Organisms: C-DIFF Date of last positivie culture/infection: 01/2015 Past Surgical History: Appendectomy, Breast Surgery Additional Past Surgical History / Comment(s): IUD INSERTION 01/2013. BENIGN TUMOR REMOVED FROM BREAST Past Anesthesia/Blood Transfusion Reactions: No Reported Reaction Past Psychological History: Anxiety, Depression Smoking Status: Former smoker Past Alcohol Use History: Rare Past Drug Use History: None Reported - Past Family History Mother Family Medical History: No Reported History General Exam Limitations: no limitations General appearance: alert, in no apparent distress, other (This is a well- developed, well-nourished adult female patient in no acute distress. Vital signs upon presentation are temperature 98.1F, pulse 70, respiration 16, blood pressure 143/89, pulse ox 97% on room air.) Eye exam: Present: normal appearance, PERRL, EOMI. Absent: scleral icterus, conjunctival injection, nystagmus, periorbital swelling ENT exam: Present: normal exam, normal oropharynx, mucous membranes moist Respiratory exam: Present: normal lung sounds bilaterally. Absent: respiratory distress, wheezes, rales, rhonchi, stridor Cardiovascular Exam: Present: regular rate, normal rhythm, normal heart sounds. Absent: systolic murmur, diastolic murmur, rubs, gallop, clicks GI/Abdominal exam: Present: soft, normal bowel sounds. Absent: distended, tenderness, guarding, rebound, rigid Neurological exam: Present: alert, oriented X3, CN II-XII intact, other ( Strength in all 4 extremities is 5/5.) Psychiatric exam: Present: normal affect, normal mood Skin exam: Present: warm, dry, intact, normal color. Absent: rash Course Vital Signs 03/27/18 03/28/18 23:28 01:07 Temperature 98.1 F Pulse Rate 70 75 Respiratory 16 16 Rate Blood Pressure 143/89 122/69 O2 Sat by Pulse 97 98 Oximetry Medical Decision Making - Medical Decision Making 32-year-old female patient presents to the emergency department today for evaluation of migraine headache. Patient reports symptoms are consistent with her usual migraine pattern and denies any new symptoms. Physical examination is unremarkable. Patient is neurologically intact. Patient was given IV fluids and medications here in the department. Upon reevaluation patient states her headache is completely resolved and she would like to be discharged home. She is instructed to follow-up with her primary care physician for recheck in 1-2 days. Return parameters discussed in detail. She verbalizes understanding and agrees with this plan. Disposition Clinical Impression: Migraine headache Disposition: HOME SELF-CARE Condition: Good Instructions: Migraine Headache (ED) Additional Instructions: Increase fluids. Follow up with her primary care physician for recheck in 1-2 days. Return here immediately for any new, worsening, or concerning symptoms. Is patient prescribed a controlled substance at d/c from ED?: No Referrals: Leonie Tariq DO [Primary Care Provider] - 1-2 days Time of Disposition: 00:52
[2018-03-28 01:08] VITALS: BP 122/69; PULSE 75
== END 2018-03-28 01:08 | disposition home or self-care (01) ==
LOC: EC 23:27
DX: G43.909 Migraine, unspecified, not intractable, without status migrainosus (principal); J45.909 Unspecified asthma, uncomplicated; F32.9 Major depressive disorder, single episode, unspecified; F41.9 Anxiety disorder, unspecified; Z87.891 Personal history of nicotine dependence; Z79.51 Long term (current) use of inhaled steroids; Z79.899 Other long term (current) drug therapy; Z88.1 Allergy status to other antibiotic agents; Z88.2 Allergy status to sulfonamides; Z97.5 Presence of (intrauterine) contraceptive device
CPT/HCPCS: 99283; 96374; 96375 ×2; 96361; J1200; J2765; J1885

== ENCOUNTER 2018-04-01 09:17 | Emergency (ER) | payer BC ==
[2018-04-01 09:20] VITALS: BP 132/66; PULSE 82; RESP 20; TEMP 98.4
[2018-04-01] MEDS ORDERED: KETOROLAC 60 MG/2 ML VIAL IM STA (09:30)
[2018-04-01] MEDS ORDERED: ORPHENADRINE 30 MG/ML 2 ML VIAL IM STA (09:30)
--- NOTE | 2018-04-01 09:34 | ED ---
General Adult HPI - General Chief complaint: Back Pain/Injury Stated complaint: Back pain Time Seen by Provider: 04/01/18 09:26 Source: patient, RN notes reviewed, old records reviewed Mode of arrival: ambulatory Limitations: no limitations - History of Present Illness Initial comments: Patient 32-year-old female presenting to the emergency room today with a chief complaint of right-sided lower back pain. She states she felt a little discomfort yesterday. She says she was swimming. Denies any specific injury or trauma. States woke up in the middle of night with increased pain radiating to the right buttock cheek. Patient states that there is no bowel or bladder incontinence retention. She denies any saddle anesthesia. She does admit that she tried ibuprofen with some relief of the symptoms. Patient states pain is worse with movements. She states she's had some lower back problems in the past. Patient denies any other complaints symptoms at this time. Patient denies any recent fever, chills, shortness of breath, chest pain, abdominal pain , nausea or vomiting, numbness or tingling, dysuria or hematuria, constipation or diarrhea, headaches or visual changes, or any other complaints. - Related Data Home Medications Medication Instructions Recorded Confirmed Lysine 500 mg PO HS 11/21/15 04/01/18 Verapamil HCl [Verapamil ER] 120 mg PO HS 11/21/15 04/01/18 Fluticasone/Vilanterol [Breo 1 puff INHALATION RT-DAILY PRN 05/09/17 04/01/18 Ellipta 100-25 Mcg Inhaler] busPIRone HCl [Buspar] 10 mg PO HS 05/09/17 04/01/18 Ascorbic Acid [Vitamin C] 500 mg PO HS 12/31/17 04/01/18 Ibuprofen [Motrin] 800 mg PO Q6H PRN 04/01/18 04/01/18 PARoxetine HCL [Paxil] 30 mg PO HS 04/01/18 04/01/18 Previous Rx's Medication Instructions Recorded Albuterol Inhaler [Ventolin Hfa 1 - 2 puff INHALATION RT-Q6H PRN 01/01/18 Inhaler] #1 inhaler Ibuprofen [Motrin] 600 mg PO Q6HR PRN #40 day 04/01/18 Orphenadrine [Norflex] 100 mg PO Q12H #20 tablet.er 04/01/18 Allergies Allergy/AdvReac Type Severity Reaction Status Date / Time azithromycin Allergy Rash/Hives Verified 04/01/18 09:27 [From Zithromax Z-Isauro] cephalexin monohydrate Allergy Rash/Hives Verified 04/01/18 09:27 [From Keflex] sulfamethoxazole Allergy Rash/Hives Verified 04/01/18 09:27 [From Bactrim] trimethoprim [From Bactrim] Allergy Rash/Hives Verified 04/01/18 09:27 Review of Systems ROS Statement: Those systems with pertinent positive or pertinent negative responses have been documented in the HPI. ROS Other: All systems not noted in ROS Statement are negative. Past Medical History Past Medical History: Asthma Additional Past Medical History / Comment(s): migraine, GI issues, ovarian cyst History of Any Multi-Drug Resistant Organisms: C-DIFF Date of last positivie culture/infection: 01/2015 Past Surgical History: Appendectomy, Breast Surgery Additional Past Surgical History / Comment(s): IUD INSERTION 01/2013. BENIGN TUMOR REMOVED FROM BREAST Past Anesthesia/Blood Transfusion Reactions: No Reported Reaction Past Psychological History: Anxiety, Depression Smoking Status: Former smoker Past Alcohol Use History: Rare Past Drug Use History: None Reported - Past Family History Mother Family Medical History: No Reported History General Exam - General Exam Comments Initial Comments: General: The patient is awake and alert, in no distress, and does not appear acutely ill. Eye: Pupils are equal, round and reactive to light. Extra-ocular movements are intact. No nystagmus. There is normal conjunctiva bilaterally. No signs of icterus. Ears, nose, mouth and throat: There are moist mucous membranes and no oral lesions. Neck: The neck is supple, there is no tenderness or JVD. Musculoskeletal: Normal ROM. Normal appearance of the thoracic and lumbar spine without step-off deformity. No tenderness midline. Paravertebral tenderness right lower lumbar going into SI joint. Sensation intact. Strength 5 /5. Pulses equal bilaterally 2+. Neurological: A&O x 3. CN II-XII intact, There are no obvious motor or sensory deficits. Coordination appears grossly intact. Speech is normal. Skin: Skin is warm and dry and no rashes or lesions are noted. Psychiatric: Cooperative, appropriate mood & affect, normal judgment. Limitations: no limitations Course Vital Signs 04/01/18 09:19 Temperature 98.4 F Pulse Rate 82 Respiratory 20 Rate Blood Pressure 132/66 O2 Sat by Pulse 100 Oximetry Medical Decision Making - Medical Decision Making Patient is advised follow-up family doctor the next 2 days. Will be started on anti-inflammatories muscle relaxant. Advised muscle relaxers been drowsy. Advised to return to emergency room symptoms increase or worsen. Disposition Clinical Impression: Acute low back pain Disposition: HOME SELF-CARE Condition: Good Instructions: Acute Low Back Pain (ED) Additional Instructions: Please use medication as discussed. Please follow-up with family doctor in the next 2 days of symptoms have not improved. Please return to emergency room if the symptoms increase or worsen or for any other concerns. Prescriptions: Ibuprofen [Motrin] 600 mg PO Q6HR PRN #40 day PRN Reason: Pain Orphenadrine [Norflex] 100 mg PO Q12H #20 tablet.er Is patient prescribed a controlled substance at d/c from ED?: No Referrals: Leonie Tariq DO [Primary Care Provider] - 1-2 days Time of Disposition: 09:34
== END 2018-04-01 09:47 | disposition home or self-care (01) ==
LOC: EC 09:17
DX: M54.5 Low back pain (principal); J45.909 Unspecified asthma, uncomplicated; F32.9 Major depressive disorder, single episode, unspecified; F41.9 Anxiety disorder, unspecified; Z87.891 Personal history of nicotine dependence; Z79.899 Other long term (current) drug therapy; Z88.1 Allergy status to other antibiotic agents; Z88.2 Allergy status to sulfonamides
CPT/HCPCS: 99283; 96372 ×2; J2360; J1885

== ENCOUNTER 2018-04-01 21:44 | Emergency (ER) | payer BC ==
[2018-04-01 21:48] VITALS: RESP 18
[2018-04-01] MEDS ORDERED: methylPREDNISolone SOD SUCCI 125 MG/2 ML VIAL IM ONE (22:06)
[2018-04-01] MEDS ORDERED: MORPHINE SULFATE 4 MG/ML SYRINGE IM STA (22:06)
--- NOTE | 2018-04-01 22:30 | ED ---
Back Pain HPI - General Chief Complaint: Back Pain/Injury Stated Complaint: back pain-revisit Time Seen by Provider: 04/01/18 22:02 Source: patient Limitations: no limitations - History of Present Illness Initial Comments: 32-year-old female patient presents to the emergency department today for evaluation of right lower back pain. Patient states that the pain as a burning sharp pain that radiates down into the right buttock. Patient states this started a couple of days ago after she was swimming. Patient was seen and evaluated here this morning for the same pain, states she has been taking ibuprofen 800 mg throughout the day without much relief of symptoms. Patient states she has also been applying heat and applying icy hot. States that nothing is working. Patient denies any radiation of the pain down her leg. Denies any numbness or tingling to her legs. Denies any loss of bowel or bladder control. Denies any saddle anesthesia. Patient denies any hematuria, dysuria, urinary frequency, urinary urgency. Patient states she has had back pain in the past however this is worse than usual. Patient denies any falls or injuries to the back that she knows of. Patient denies any recent rash, fever, chills, shortness breath, chest pain, abdominal pain, nausea, vomiting, diarrhea , constipation, dizziness, weakness, headache, visual changes, or any other complaints. - Related Data Home Medications Medication Instructions Recorded Confirmed Lysine 500 mg PO HS 11/21/15 04/01/18 Verapamil HCl [Verapamil ER] 120 mg PO HS 11/21/15 04/01/18 Fluticasone/Vilanterol [Breo 1 puff INHALATION RT-DAILY PRN 05/09/17 04/01/18 Ellipta 100-25 Mcg Inhaler] busPIRone HCl [Buspar] 10 mg PO HS 05/09/17 04/01/18 Ascorbic Acid [Vitamin C] 500 mg PO HS 12/31/17 04/01/18 PARoxetine HCL [Paxil] 30 mg PO HS 04/01/18 04/01/18 Previous Rx's Medication Instructions Recorded Albuterol Inhaler [Ventolin Hfa 1 - 2 puff INHALATION RT-Q6H PRN 01/01/18 Inhaler] #1 inhaler Ibuprofen [Motrin] 600 mg PO Q6HR PRN #40 day 04/01/18 Orphenadrine [Norflex] 100 mg PO Q12H #20 tablet.er 04/01/18 methylPREDNISolone [Medrol Dose 4 mg PO DIRECTED #1 pack 04/01/18 Pack] Allergies Allergy/AdvReac Type Severity Reaction Status Date / Time azithromycin Allergy Rash/Hives Verified 04/01/18 22:15 [From Zithromax Z-Isauro] cephalexin monohydrate Allergy Rash/Hives Verified 04/01/18 22:15 [From Keflex] sulfamethoxazole Allergy Rash/Hives Verified 04/01/18 22:15 [From Bactrim] trimethoprim [From Bactrim] Allergy Rash/Hives Verified 04/01/18 22:15 Review of Systems ROS Statement: Those systems with pertinent positive or pertinent negative responses have been documented in the HPI. ROS Other: All systems not noted in ROS Statement are negative. Past Medical History Past Medical History: Asthma Additional Past Medical History / Comment(s): migraine, GI issues, ovarian cyst History of Any Multi-Drug Resistant Organisms: C-DIFF Date of last positivie culture/infection: 01/2015 Past Surgical History: Appendectomy, Breast Surgery Additional Past Surgical History / Comment(s): IUD INSERTION 01/2013. BENIGN TUMOR REMOVED FROM BREAST Past Anesthesia/Blood Transfusion Reactions: No Reported Reaction Past Psychological History: Anxiety, Depression Smoking Status: Former smoker Past Alcohol Use History: Rare Past Drug Use History: None Reported - Past Family History Mother Family Medical History: No Reported History General Exam Limitations: no limitations General appearance: alert, in no apparent distress, other (This is a well- developed, well-nourished adult female patient in no acute distress. Vital signs upon presentation are temperature 98.0F, pulse 83, respirations 18, blood pressure 156/99, pulse ox 98% on room air.) Eye exam: Present: normal appearance, PERRL, EOMI. Absent: scleral icterus, conjunctival injection, periorbital swelling ENT exam: Present: normal exam, normal oropharynx, mucous membranes moist Respiratory exam: Present: normal lung sounds bilaterally. Absent: respiratory distress, wheezes, rales, rhonchi, stridor Cardiovascular Exam: Present: regular rate, normal rhythm, normal heart sounds. Absent: systolic murmur, diastolic murmur, rubs, gallop, clicks GI/Abdominal exam: Present: soft, normal bowel sounds. Absent: distended, tenderness, guarding, rebound, rigid Back exam: Present: normal inspection. Absent: tenderness Neurological exam: Present: alert, oriented X3, CN II-XII intact, other ( Strength in all 4 extremities is 5/5.) Psychiatric exam: Present: normal affect, normal mood Skin exam: Present: warm, dry, intact, normal color. Absent: rash Course Vital Signs 04/01/18 04/02/18 21:46 00:22 Temperature 98.0 F 97.7 F Pulse Rate 83 70 Respiratory 18 18 Rate Blood Pressure 156/99 142/87 O2 Sat by Pulse 98 98 Oximetry Medical Decision Making - Medical Decision Making 32-year-old female patient presents the emergency department today for complaints of right lower back pain with radiation to the right buttock. Physical examination is unremarkable. Patient is neurologically intact. Did perform urinalysis which was negative for any evidence of infection. Patient had no direct injury to the back surgery did not perform x-ray at this time. She was given IM morphine and site Medrol here in the department. She does report improvement of her symptoms. She was educated regarding return parameters. She is given a Medrol Dosepak. She is instructed to follow-up with her primary care physician for discussion of referral to orthopedics or MRI. Return parameters discussed in detail. She verbalizes understanding and agrees with this plan. - Lab Data Lab Results 04/01/18 Range/Units 23:22 Urine Color Yellow Urine Appearance Cloudy H (Clear) Urine pH 5.5 (5.0-8.0) Ur Specific [place] 1.020 (1.001-1.035) Urine Protein Trace H (Negative) Urine Glucose (UA) Negative (Negative) Urine Ketones Negative (Negative) Urine Blood Trace H (Negative) Urine Nitrite Negative (Negative) Urine Bilirubin Negative (Negative) Urine Urobilinogen <2.0 (<2.0) mg/dL Ur Leukocyte Esterase Trace H (Negative) Urine RBC 2 (0-5) /hpf Urine WBC 3 (0-5) /hpf Ur Squamous Epith Cells 8 H (0-4) /hpf Urine Bacteria Occasional H (None) /hpf Urine Mucus Occasional H (None) /hpf Disposition Clinical Impression: Acute low back pain Disposition: HOME SELF-CARE Condition: Good Instructions: Acute Low Back Pain (ED) Additional Instructions: Continue all medications as directed. Continue applying warm moist heat to the low back and using [id number] muscle rubs. Add in steroid. If pain symptoms continue follow-up with her primary care physician to discuss possible referral to orthopedics or MRI. Return here immediately for any new, worsening , or concerning symptoms. Prescriptions: methylPREDNISolone [Medrol Dose Pack] 4 mg PO DIRECTED #1 pack Is patient prescribed a controlled substance at d/c from ED?: No Referrals: Leonie Tariq DO [Primary Care Provider] - 1-2 days Time of Disposition: 23:59
[2018-04-01 23:52] LABS: Appearance,Urine Cloudy (Clear); Bacteria,Urine Occasional /hpf; Bilirubin,Urine Negative (Negative); Blood,Urine Trace (Negative); Color,Urine Yellow; Glucose,Urine (UA) Negative (Negative); Ketones,Urine Negative (Negative); Leukocyte Esterase,Urine Trace (Negative); Mucus,Urine Occasional /hpf; Nitrite,Urine Negative (Negative); PH, Urine 5.5 (5.0-8.0); Protein,Urine Trace (Negative); RBC,Urine 2 /hpf (0-5); Squamous Epithelial Cell,Urine 8 /hpf (0-4); Urobilinogen,Urine <2.0 mg/dL (<2.0); WBC,Urine 3 /hpf (0-5)
[2018-04-01] MEDS ORDERED: ACET/COD 300 MG/30 MG STARTER PACK 6 TAB BTL PO STA (23:59)
[2018-04-02 00:23] VITALS: BP 142/87; PULSE 70; TEMP 97.7
== END 2018-04-02 00:23 | disposition home or self-care (01) ==
LOC: EC 21:44
DX: M54.5 Low back pain (principal); J45.909 Unspecified asthma, uncomplicated; F41.9 Anxiety disorder, unspecified; F32.9 Major depressive disorder, single episode, unspecified; Z87.891 Personal history of nicotine dependence; Z79.899 Other long term (current) drug therapy; Z88.1 Allergy status to other antibiotic agents; Z88.2 Allergy status to sulfonamides
CPT/HCPCS: 81001; 99283; 96372 ×2; J2270; J2930

== ENCOUNTER 2018-05-06 19:27 | Emergency (ER) | payer BC ==
[2018-05-06 19:56] VITALS: BP 123/77; PULSE 73; RESP 18; TEMP 98.2
--- NOTE | 2018-05-06 21:10 | XR ---
PROCEDURE: XR Hip RT and AP Pelvis 3V DATE AND TIME: 05/06/2018 9:05 PM CLINICAL INDICATION: Injury, pain TECHNIQUE: Department protocol. 3V COMPARISON: None FINDINGS: There is no fracture or malalignment. The soft tissues are unremarkable. IMPRESSION: NO ACUTE PROCESS.
--- NOTE | 2018-05-06 21:12 | XR ---
PROCEDURE: XR lumbosacral spine - 3V DATE AND TIME: 05/06/2018 9:05 PM CLINICAL INDICATION: fall; pain TECHNIQUE: Department protocol. COMPARISON: 06/16/2016 FINDINGS: There is no fracture or malalignment. The soft tissues are unremarkable. IMPRESSION: NO ACUTE PROCESS.
--- NOTE | 2018-05-06 21:25 | ED ---
General Adult HPI - General Source: patient, RN notes reviewed Mode of arrival: ambulatory Limitations: no limitations <Qing Armas - Last Filed: 05/06/18 21:42> <Flori Murillo - Last Filed: 05/06/18 23:17> - General Chief complaint: Extremity Injury, Lower Stated complaint: fell/hip & lower back pain Time Seen by Provider: 05/06/18 20:41 - History of Present Illness Initial comments: This is a 32-year-old female who presents to the emergency department with chief complaint of right low back and hip pain. Patient states that she fell down stairs one week ago. She states that since that time she has had a throbbing sensation in her right lower back with radiation of pain to the right hip. She states that she has tried multiple medications including steroid injections, oral steroids, anti-inflammatories, heat and ice, icy hot. She states the pain is not improving. She states that she has not had any x-rays performed since the fall. Denies saddle paresthesias or loss of bladder or bowel function. Denies radiation of pain down the legs or numbness and tingling. Denies fevers or chills, chest pain or shortness of breath, abdominal pain, nausea or vomiting. (Qing Armas) - Related Data Home Medications Medication Instructions Recorded Confirmed Lysine 500 mg PO HS 11/21/15 05/06/18 Verapamil HCl [Verapamil ER] 120 mg PO HS 11/21/15 05/06/18 Fluticasone/Vilanterol [Breo 1 puff INHALATION RT-DAILY PRN 05/09/17 05/06/18 Ellipta 100-25 Mcg Inhaler] busPIRone HCl [Buspar] 10 mg PO HS 05/09/17 05/06/18 Ascorbic Acid [Vitamin C] 500 mg PO HS 12/31/17 05/06/18 PARoxetine HCL [Paxil] 30 mg PO HS 04/01/18 05/06/18 Previous Rx's Medication Instructions Recorded Albuterol Inhaler [Ventolin Hfa 1 - 2 puff INHALATION RT-Q6H PRN 01/01/18 Inhaler] #1 inhaler Ibuprofen [Motrin] 600 mg PO Q6HR PRN #40 day 04/01/18 Allergies Allergy/AdvReac Type Severity Reaction Status Date / Time azithromycin Allergy Rash/Hives Verified 05/06/18 20:59 [From Zithromax Z-Isauro] cephalexin monohydrate Allergy Rash/Hives Verified 05/06/18 20:59 [From Keflex] sulfamethoxazole Allergy Rash/Hives Verified 05/06/18 20:59 [From Bactrim] trimethoprim [From Bactrim] Allergy Rash/Hives Verified 05/06/18 20:59 Review of Systems ROS Other: All systems not noted in ROS Statement are negative. <Qing Armas - Last Filed: 05/06/18 21:42> ROS Other: All systems not noted in ROS Statement are negative. <Flori Murillo - Last Filed: 05/06/18 23:17> ROS Statement: Those systems with pertinent positive or pertinent negative responses have been documented in the HPI. Past Medical History Past Medical History: Asthma Additional Past Medical History / Comment(s): migraine, ovarian cyst, in- operable fibroid tumor in uterus, History of Any Multi-Drug Resistant Organisms: C-DIFF Date of last positivie culture/infection: 01/2015 Past Surgical History: Appendectomy, Breast Surgery Additional Past Surgical History / Comment(s): BENIGN TUMOR REMOVED FROM BREAST Past Anesthesia/Blood Transfusion Reactions: No Reported Reaction Past Psychological History: Anxiety, Depression Smoking Status: Former smoker Past Alcohol Use History: Rare Past Drug Use History: None Reported - Past Family History Mother Family Medical History: No Reported History <Qing Armas - Last Filed: 05/06/18 21:42> General Exam Limitations: no limitations Back exam: Present: normal inspection, full ROM, tenderness (Tenderness on palpation of the right SI joint.). Absent: paraspinal tenderness, vertebral tenderness <Qing Armas - Last Filed: 05/06/18 21:42> <Flori Murillo - Last Filed: 05/06/18 23:17> - General Exam Comments Initial Comments: General: Awake and alert, well-developed; in no apparent distress. HEENT: Head atraumatic, normocephalic. Pupils are equal, round and reactive to light. Extraocular movements intact. Oropharynx moist without erythema or exudate. Neck: Supple. Normal ROM. Cardiovascular: Regular rate and rhythm. No murmurs, rubs or gallops. Chest symmetrical. Pedal pulses are 2+ equal and palpable bilaterally. Respiratory: Lungs clear to auscultation bilaterally. No wheezes, rales or rhonchi. Normal respiratory effort with no use of accessory muscles. Musculoskeletal: Normal ROM of the right hip. There is mild tenderness on palpation of the greater trochanter. Sensation is intact. Patient is ambulating normally. Skin: [place], warm and dry without rashes or lesions. Neurological: Alert and oriented x3. CN II-XII grossly intact. Speech is fluent and answers are appropriate. No focal neuro deficits. Psychiatric: Normal mood and affect. No overt signs of depression or anxiety noted. (Qing Armas) Vital Signs 05/06/18 19:51 Temperature 98.2 F Pulse Rate 73 Respiratory 18 Rate Blood Pressure 123/77 O2 Sat by Pulse 99 Oximetry Medical Decision Making - Radiology Data Radiology results: report reviewed <Qing Armas - Last Filed: 05/06/18 21:42> <Flori Murillo - Last Filed: 05/06/18 23:17> - Medical Decision Making This is a 32-year-old female who presents to the emergency department with chief complaint of right low back and hip pain. Patient reports falling down a set of stairs one month ago. No x-rays have been performed, however she has tried multiple medications. Patient reports that the pain has not improved. There is normal range of motion of the right hip and back. There is tenderness on palpation of the right SI joint. Patient denies saddle paresthesias or loss of bladder or bowel function. Pulses are palpable and equal. X-rays of the lumbar spine and right hip are performed. This revealed no acute abnormalities. Patient will be given contact information to follow up with orthopedics for further evaluation and treatment. Patient's vital signs are stable and she is in no acute distress. She will be discharged home at this time. She is in agreement with plan and voices understanding. All questions were answered. (Qing Armas) I was available for consultation in the emergency department. The history and physical exam were done by the midlevel provider. I was consulted for this patient's care. I reviewed the case with the midlevel provider and based on their presentation of the patient, I agree with the assessment, medical decision making and plan of care as documented. (Flori Murillo) - Radiology Data X-ray lumbar spine impression: No acute process. X-ray right hip and AP pelvis impression: No acute process. (Qing Armas) Disposition Is patient prescribed a controlled substance at d/c from ED?: No Time of Disposition: 21:25 <Qing Armas - Last Filed: 05/06/18 21:42> <Flori Murillo - Last Filed: 05/06/18 23:17> Clinical Impression: Low back pain Disposition: HOME SELF-CARE Condition: Good Instructions: Back Pain (ED) Additional Instructions: As discussed, please follow up with Dr. Shoemaker, [facility] for further evaluation and treatment. Please follow up with primary care provider within 1-2 days. Return to emergency department if symptoms should worsen or any concerns arise. Referrals: Cristina Shoemaker DO [Doctor of Osteopathic Medicine] - 1-2 days Margy Crowell DO [Primary Care Provider] - 1-2 days Stevie Roberts MD [STAFF PHYSICIAN] - 1-2 days
== END 2018-05-06 21:46 | disposition home or self-care (01) ==
LOC: EC 19:27
DX: M54.5 Low back pain (principal); M25.551 Pain in right hip; J45.909 Unspecified asthma, uncomplicated; F41.9 Anxiety disorder, unspecified; F32.9 Major depressive disorder, single episode, unspecified; Z88.1 Allergy status to other antibiotic agents; Z88.2 Allergy status to sulfonamides; Z79.51 Long term (current) use of inhaled steroids; Z79.899 Other long term (current) drug therapy; Z87.891 Personal history of nicotine dependence; W10.9XXA Fall (on) (from) unspecified stairs and steps, initial encounter
CPT/HCPCS: 72110; 73502; 99283

== ENCOUNTER 2018-06-24 17:19 | Emergency (ER) | payer BC ==
[2018-06-24 17:31] VITALS: TEMP 98.1
[2018-06-24 17:53] LABS: Basophils # (A) 0.1 k/uL (0-0.2); Basophils % (A) 0 %; Eosinophils # (A) 0.5 k/uL (0-0.7); Eosinophils % (A) 3 %; HCT 43.3 % (34.0-46.0); HGB 13.9 gm/dL (11.4-16.0); Lymphocytes # (A) 2.9 k/uL (1.0-4.8); Lymphocytes % (A) 20 %; MCH 29.4 pg (25.0-35.0); MCHC 32.1 g/dL (31.0-37.0); MCV 91.4 fL (80.0-100.0); Mean Platelet Volume 7.8; Monocytes # (A) 0.8 k/uL (0-1.0); Monocytes % (A) 5 %; Neutrophils # (A) 10.1 k/uL (1.3-7.7); Neutrophils % (A) 69 %; Platelet Count 314 k/uL (150-450); RBC 4.74 m/uL (3.80-5.40); RDW 13.3 % (11.5-15.5); WBC 14.6 k/uL (3.8-10.6)
[2018-06-24 18:03] LABS: Partial Thromboplastin Time 25.6 sec (22.0-30.0); Prothrombin Time 9.8 sec (9.0-12.0)
[2018-06-24 18:07] LABS: ALT 16 U/L (9-52); AST 19 U/L (14-36); Albumin 3.9 g/dL (3.5-5.0); Alkaline Phosphatase 81 U/L (38-126); Anion Gap 10 mmol/L; Blood Urea Nitrogen 12 mg/dL (7-17); Carbon Dioxide 24 mmol/L (22-30); Chloride 105 mmol/L (98-107); Glucose 108 mg/dL (74-99); Magnesium 2.1 mg/dL (1.6-2.3); Potassium 3.9 mmol/L (3.5-5.1); Sodium 139 mmol/L (137-145); Total Bilirubin 0.4 mg/dL (0.2-1.3); Total Protein 6.8 g/dL (6.3-8.2)
[2018-06-24 18:15] LABS: Creatine Kinase 56 U/L (30-135)
[2018-06-24 18:28] LABS: Creatine Kinase MB 0.9 ng/mL (0.0-2.4); Troponin I <0.012 ng/mL (0.000-0.034)
--- NOTE | 2018-06-24 20:16 | XR ---
EXAMINATION: XR chest 2V DATE AND TIME: 06/24/2018 6:47 PM CLINICAL INDICATION: Chest Pain TECHNIQUE: PA and lateral COMPARISON: 12/31/2017 FINDINGS: The lungs are clear. The pleural spaces are negative. The cardiac silhouette is not enlarged. The remainder of the mediastinal silhouette is unremarkable. The skeletal structures and soft tissues are negative for acute findings. IMPRESSION: NO ACUTE PROCESS.
[2018-06-24 20:21] VITALS: RESP 20
[2018-06-24 20:33] LABS: Appearance,Urine Turbid (Clear); Bilirubin,Urine Negative (Negative); Blood,Urine Negative (Negative); Color,Urine Yellow; Glucose,Urine (UA) Negative (Negative); Ketones,Urine Negative (Negative); Leukocyte Esterase,Urine Negative (Negative); Mucus,Urine Rare /hpf; Nitrite,Urine Negative (Negative); PH, Urine 7.5 (5.0-8.0); Protein,Urine Trace (Negative); RBC,Urine 4 /hpf (0-5); Specific Gravity,Urine 1.022 (1.001-1.035); Squamous Epithelial Cell,Urine 10 /hpf (0-4)
--- NOTE | 2018-06-24 21:28 | ED ---
General Adult HPI - General Chief complaint: Chest Pain Stated complaint: chest pain, sob Source: patient, RN notes reviewed, old records reviewed Mode of arrival: ambulatory Limitations: no limitations - History of Present Illness Initial comments: 33-year-old female patient with past history of bronchitis, presents to ED with cough, chest pain, shortness of breath. Patient was diagnosed with bronchitis approximately 10 days ago. Patient was initially treated with Medrol Dosepak, azithromycin. Patient has had cough since initial diagnosis 10 days ago. Patient presents in ED today with 3 days of chest pain, shortness of breath. Patient denies pleuritic chest pain. Patient states that the chest pain she describes is substernal pressure, constant. Patient states that this is not worse with activity or with rest, rather has been consistent of present for approximately 3 days. Patient denies other symptoms including diaphoresis, abdominal pain, nausea vomiting diarrhea, syncope or presyncope, hemoptysis, rhinitis/congestion Systemic: Pt denies fatigue, myalgia, fever/chills, rash. Pt denies weakness, night sweats, weight loss. Neuro: Pt denies headache, visual disturbances, syncope or pre-syncope. HEENT: Pt denies ocular discharge or irritation, otalgia, rhinorrhea, pharyngitis or notable lymphadenopathy. Cardiopulmonary: Pt denies heart palpitations, dyspnea on exertion. Abdominal/GI: Pt denies abdominal pain, n/v/d. : Pt denies dysuria, burning w/ urination, frequency/urgency. Denies new onset urinary or bowel incontinence. MSK: Pt denies myalgia, loss of strength or function in extremities. - Related Data Home Medications Medication Instructions Recorded Confirmed PARoxetine HCL [Paxil] 40 mg PO HS 06/24/18 06/24/18 Previous Rx's Medication Instructions Recorded Albuterol Inhaler [Ventolin Hfa 1 - 2 puff INHALATION RT-Q6H PRN 01/01/18 Inhaler] #1 inhaler Albuterol Inhaler [Ventolin Hfa 1 - 2 puff INHALATION RT-Q6H PRN 06/24/18 Inhaler] #1 inhaler methylPREDNISolone Dose Pack 4 mg PO DIRECTED #21 package 06/24/18 [Medrol Dose Pack] Allergies Allergy/AdvReac Type Severity Reaction Status Date / Time azithromycin Allergy Rash/Hives Verified 06/24/18 19:14 [From Zithromax Z-Isauro] cephalexin monohydrate Allergy Rash/Hives Verified 06/24/18 19:14 [From Keflex] sulfamethoxazole Allergy Rash/Hives Verified 06/24/18 19:14 [From Bactrim] trimethoprim [From Bactrim] Allergy Rash/Hives Verified 06/24/18 19:14 Review of Systems ROS Statement: Those systems with pertinent positive or pertinent negative responses have been documented in the HPI. ROS Other: All systems not noted in ROS Statement are negative. Past Medical History Past Medical History: Asthma Additional Past Medical History / Comment(s): migraine, ovarian cyst, in- operable fibroid tumor in uterus, History of Any Multi-Drug Resistant Organisms: C-DIFF Date of last positivie culture/infection: 01/2015 Past Surgical History: Appendectomy, Breast Surgery Additional Past Surgical History / Comment(s): BENIGN TUMOR REMOVED FROM BREAST Past Anesthesia/Blood Transfusion Reactions: No Reported Reaction Past Psychological History: Anxiety, Depression Smoking Status: Former smoker Past Alcohol Use History: Rare Past Drug Use History: None Reported - Past Family History Mother Family Medical History: No Reported History General Exam - General Exam Comments Initial Comments: Constitutional: NAD, AOX3, Pt has pleasant affect. HEENT: NC/AT, trachea midline, neck supple, no lymphadenopathy. Posterior pharynx non erythematous, without exudates. External ears appear normal, without discharge. Mucous membranes moist. Eyes PERRLA, EOM intact. There is no scleral icterus. No pallor noted. Cardiopulmonary: RRR, no murmurs, rubs or gallops, no JVD noted. Lungs CTAB in anterior and posterior graham. No peripheral edema. Abdominal exam: Abdomen soft and non-distended. Abdomen non-tender to palpation in all 4 quadrants. Bowel sounds active in LLQ. No hepatosplenomegaly. Neuro: CN II-XII intact. No focal deficit. No facial droop. Limitations: no limitations Course Vital Signs 06/24/18 06/24/18 06/24/18 17:27 20:20 21:36 Temperature 98.1 F 98.1 F Pulse Rate 100 93 77 Respiratory 18 20 20 Rate Blood Pressure 141/81 143/95 138/70 O2 Sat by Pulse 99 98 98 Oximetry Medical Decision Making - Medical Decision Making 33-year-old female patient with past history of bronchitis, presents to ED with cough, chest pain, shortness of breath. Patient was diagnosed with bronchitis approximately 10 days ago. Patient was initially treated with Medrol Dosepak, azithromycin. Patient has had cough since initial diagnosis 10 days ago. Patient presents in ED today with 3 days of chest pain, shortness of breath. Patient denies pleuritic chest pain. Patient states that the chest pain she describes is substernal pressure, constant. Patient states that this is not worse with activity or with rest, rather has been consistent of present for approximately 3 days. Patient denies other symptoms including diaphoresis, abdominal pain, nausea vomiting diarrhea, syncope or presyncope, hemoptysis, rhinitis/congestion. Physical exam of neurological, cardiopulmonary, HEENT, abdominal systems did not display acute pathology. Laboratory investigations including CBC, CMP, d-dimer, coagulation, troponin were not impressive. Chest x -ray did not display any acute process. EKG was not suspicious for ischemia. Patient diagnosed with acute bronchitis. Patient given Medrol Dosepak, Ventolin inhaler. Patient to return to ED if any new signs or symptoms develop including, chest pain, shortness of breath, abdominal pain, nausea vomiting diarrhea, any other new symptoms. Patient to follow-up with PCP in 1-2 days. Case discussed with Dr. Mathis. - Lab Data Result diagrams: 06/24/18 17:40 06/24/18 17:40 Lab Results 06/24/18 06/24/18 06/24/18 Range/Units 17:40 17:40 17:40 WBC 14.6 H (3.8-10.6) k/uL RBC 4.74 (3.80-5.40) m/uL Hgb 13.9 (11.4-16.0) gm/dL Hct 43.3 (34.0-46.0) % MCV 91.4 (80.0-100.0) fL MCH 29.4 (25.0-35.0) pg MCHC 32.1 (31.0-37.0) g/dL RDW 13.3 (11.5-15.5) % Plt Count 314 (150-450) k/uL Neutrophils % 69 % Lymphocytes % 20 % Monocytes % 5 % Eosinophils % 3 % Basophils % 0 % Neutrophils # 10.1 H (1.3-7.7) k/uL Lymphocytes # 2.9 (1.0-4.8) k/uL Monocytes # 0.8 (0-1.0) k/uL Eosinophils # 0.5 (0-0.7) k/uL Basophils # 0.1 (0-0.2) k/uL PT (9.0-12.0) sec INR (<1.2) APTT (22.0-30.0) sec D-Dimer (<0.60) mg/L FEU Sodium 139 (137-145) mmol/L Potassium 3.9 (3.5-5.1) mmol/L Chloride 105 (98-107) mmol/L Carbon Dioxide 24 (22-30) mmol/L Anion Gap 10 mmol/L BUN 12 (7-17) mg/dL Creatinine 0.62 (0.52-1.04) mg/dL Est GFR (CKD-EPI)AfAm >90 (>60 ml/min/1.73 sqM) Est GFR (CKD-EPI)NonAf >90 (>60 ml/min/1.73 sqM) Glucose 108 H (74-99) mg/dL Calcium 9.0 (8.4-10.2) mg/dL Magnesium 2.1 (1.6-2.3) mg/dL Total Bilirubin 0.4 (0.2-1.3) mg/dL AST 19 (14-36) U/L ALT 16 (9-52) U/L Alkaline Phosphatase 81 (38-126) U/L Total Creatine Kinase 56 (30-135) U/L CK-MB (CK-2) 0.9 (0.0-2.4) ng/mL CK-MB (CK-2) Rel Index 1.6 Troponin I <0.012 (0.000-0.034) ng/mL Total Protein 6.8 (6.3-8.2) g/dL Albumin 3.9 (3.5-5.0) g/dL Urine Color Urine Appearance (Clear) Urine pH (5.0-8.0) Ur Specific [place] (1.001-1.035) Urine Protein (Negative) Urine Glucose (UA) (Negative) Urine Ketones (Negative) Urine Blood (Negative) Urine Nitrite (Negative) Urine Bilirubin (Negative) Urine Urobilinogen (<2.0) mg/dL Ur Leukocyte Esterase (Negative) Urine RBC (0-5) /hpf Urine WBC (0-5) /hpf Ur Squamous Epith Cells (0-4) /hpf Urine Mucus (None) /hpf Urine HCG, Qual (Not Detectd) 06/24/18 06/24/18 06/24/18 Range/Units 17:40 17:40 20:15 WBC (3.8-10.6) k/uL RBC (3.80-5.40) m/uL Hgb (11.4-16.0) gm/dL Hct (34.0-46.0) % MCV (80.0-100.0) fL MCH (25.0-35.0) pg MCHC (31.0-37.0) g/dL RDW (11.5-15.5) % Plt Count (150-450) k/uL Neutrophils % % Lymphocytes % % Monocytes % % Eosinophils % % Basophils % % Neutrophils # (1.3-7.7) k/uL Lymphocytes # (1.0-4.8) k/uL Monocytes # (0-1.0) k/uL Eosinophils # (0-0.7) k/uL Basophils # (0-0.2) k/uL PT 9.8 (9.0-12.0) sec INR 1.0 (<1.2) APTT 25.6 (22.0-30.0) sec D-Dimer 0.25 (<0.60) mg/L FEU Sodium (137-145) mmol/L Potassium (3.5-5.1) mmol/L Chloride (98-107) mmol/L Carbon Dioxide (22-30) mmol/L Anion Gap mmol/L BUN (7-17) mg/dL Creatinine (0.52-1.04) mg/dL Est GFR (CKD-EPI)AfAm (>60 ml/min/1.73 sqM) Est GFR (CKD-EPI)NonAf (>60 ml/min/1.73 sqM) Glucose (74-99) mg/dL Calcium (8.4-10.2) mg/dL Magnesium (1.6-2.3) mg/dL Total Bilirubin (0.2-1.3) mg/dL AST (14-36) U/L ALT (9-52) U/L Alkaline Phosphatase (38-126) U/L Total Creatine Kinase (30-135) U/L CK-MB (CK-2) (0.0-2.4) ng/mL CK-MB (CK-2) Rel Index Troponin I (0.000-0.034) ng/mL Total Protein (6.3-8.2) g/dL Albumin (3.5-5.0) g/dL Urine Color Urine Appearance (Clear) Urine pH (5.0-8.0) Ur Specific [place] (1.001-1.035) Urine Protein (Negative) Urine Glucose (UA) (Negative) Urine Ketones (Negative) Urine Blood (Negative) Urine Nitrite (Negative) Urine Bilirubin (Negative) Urine Urobilinogen (<2.0) mg/dL Ur Leukocyte Esterase (Negative) Urine RBC (0-5) /hpf Urine WBC (0-5) /hpf Ur Squamous Epith Cells (0-4) /hpf Urine Mucus (None) /hpf Urine HCG, Qual Not Detected (Not Detectd) 06/24/18 Range/Units 20:15 WBC (3.8-10.6) k/uL RBC (3.80-5.40) m/uL Hgb (11.4-16.0) gm/dL Hct (34.0-46.0) % MCV (80.0-100.0) fL MCH (25.0-35.0) pg MCHC (31.0-37.0) g/dL RDW (11.5-15.5) % Plt Count (150-450) k/uL Neutrophils % % Lymphocytes % % Monocytes % % Eosinophils % % Basophils % % Neutrophils # (1.3-7.7) k/uL Lymphocytes # (1.0-4.8) k/uL Monocytes # (0-1.0) k/uL Eosinophils # (0-0.7) k/uL Basophils # (0-0.2) k/uL PT (9.0-12.0) sec INR (<1.2) APTT (22.0-30.0) sec D-Dimer (<0.60) mg/L FEU Sodium (137-145) mmol/L Potassium (3.5-5.1) mmol/L Chloride (98-107) mmol/L Carbon Dioxide (22-30) mmol/L Anion Gap mmol/L BUN (7-17) mg/dL Creatinine (0.52-1.04) mg/dL Est GFR (CKD-EPI)AfAm (>60 ml/min/1.73 sqM) Est GFR (CKD-EPI)NonAf (>60 ml/min/1.73 sqM) Glucose (74-99) mg/dL Calcium (8.4-10.2) mg/dL Magnesium (1.6-2.3) mg/dL Total Bilirubin (0.2-1.3) mg/dL AST (14-36) U/L ALT (9-52) U/L Alkaline Phosphatase (38-126) U/L Total Creatine Kinase (30-135) U/L CK-MB (CK-2) (0.0-2.4) ng/mL CK-MB (CK-2) Rel Index Troponin I (0.000-0.034) ng/mL Total Protein (6.3-8.2) g/dL Albumin (3.5-5.0) g/dL Urine Color Yellow Urine Appearance Turbid H (Clear) Urine pH 7.5 (5.0-8.0) Ur Specific [place] 1.022 (1.001-1.035) Urine Protein Trace H (Negative) Urine Glucose (UA) Negative (Negative) Urine Ketones Negative (Negative) Urine Blood Negative (Negative) Urine Nitrite Negative (Negative) Urine Bilirubin Negative (Negative) Urine Urobilinogen 2.0 (<2.0) mg/dL Ur Leukocyte Esterase Negative (Negative) Urine RBC 4 (0-5) /hpf Urine WBC 3 (0-5) /hpf Ur Squamous Epith Cells 10 H (0-4) /hpf Urine Mucus Rare H (None) /hpf Urine HCG, Qual (Not Detectd) - EKG Data -: EKG Interpreted by Me EKG Comments: Normal sinus rhythm. Ventricular rate 85, TN interval 150, QRS 92. No concerns for acute ischemia. Disposition Clinical Impression: Bronchitis Disposition: HOME SELF-CARE Condition: Good Instructions: Acute Bronchitis (ED) Additional Instructions: Patient to adhere to previously discussed treatment plan and will take medication(s) as directed. Patient to follow up with PCP in 1-2 days. Patient to return to ED if symptoms do not improve. Prescriptions: Albuterol Inhaler [Ventolin Hfa Inhaler] 1 - 2 puff INHALATION RT-Q6H PRN #1 inhaler PRN Reason: bronchitis methylPREDNISolone Dose Pack [Medrol Dose Pack] 4 mg PO DIRECTED #21 package Is patient prescribed a controlled substance at d/c from ED?: No Referrals: Margy Crowell DO [Primary Care Provider] - 1-2 days Time of Disposition: 21:28
[2018-06-24 21:37] VITALS: BP 138/70; PULSE 77
== END 2018-06-24 21:36 | disposition home or self-care (01) ==
LOC: EC 17:19
DX: J40 Bronchitis, not specified as acute or chronic (principal); F32.9 Major depressive disorder, single episode, unspecified; F41.9 Anxiety disorder, unspecified; Z88.1 Allergy status to other antibiotic agents; Z88.2 Allergy status to sulfonamides; Z79.899 Other long term (current) drug therapy; Z87.891 Personal history of nicotine dependence
CPT/HCPCS: 36415; 71046; 80053; 81001; 81025; 82550; 82553; 83735; 84484; 85025; 85379; 85610; 85730; 93005; 99285

== ENCOUNTER 2018-07-02 20:51 | Emergency (ER) | payer BC ==
[2018-07-02] MEDS ORDERED: ALBUTEROL NEBULIZED 2.5 MG/3 ML INHALATION STA (21:19)
[2018-07-02] MEDS ORDERED: IPRATROPIUM-ALBUTEROL 3 ML NEB INHALATION STA (21:19)
--- NOTE | 2018-07-02 21:24 | ED ---
SOB HPI - General Chief Complaint: Shortness of Breath Stated Complaint: ARMAND Time Seen by Provider: 07/02/18 21:10 Source: patient Mode of arrival: ambulatory Limitations: no limitations - History of Present Illness Initial Comments: This patient is a 33-year-old woman who presents with coughing, wheezing, and upper congestion have been going on 1-2 weeks. Patient states she has history of asthma and it feels like a flare of that. She was seen here on the for similar symptoms, was given a course of prednisone and azithromycin. She states she did have relief while she was taking those medicines, when she stopped, the symptoms returned. At home she is currently only taking the albuterol inhaler, but she states that this has not been giving her relief today. Patient denies fever or chills. She is not having leg pain or swelling. Regarding chest pain, she states she does have some diffuse, burning chest pain when she coughs otherwise no chest pain MD Complaint: shortness of breath, cough, chest pain Onset/Timin -: week(s) Quality: burning Consistency: intermittent Improves With: nothing Worsens With: coughing Known History Of: asthma Context: recent URI Associated Symptoms: denies other symptoms - Related Data Previous Rx's Medication Instructions Recorded Albuterol Inhaler [Ventolin Hfa 1 - 2 puff INHALATION RT-Q6H PRN 06/24/18 Inhaler] #1 inhaler predniSONE 60 mg PO DAILY #30 tab 07/02/18 Allergies Allergy/AdvReac Type Severity Reaction Status Date / Time azithromycin Allergy Rash/Hives Verified 07/02/18 21:09 [From Zithromax Z-Isauro] cephalexin monohydrate Allergy Rash/Hives Verified 07/02/18 21:09 [From Keflex] sulfamethoxazole Allergy Rash/Hives Verified 07/02/18 21:09 [From Bactrim] trimethoprim [From Bactrim] Allergy Rash/Hives Verified 07/02/18 21:09 Review of Systems ROS Statement: Those systems with pertinent positive or pertinent negative responses have been documented in the HPI. ROS Other: All systems not noted in ROS Statement are negative. Constitutional: Denies: fever, chills, weakness ENT: Reports: congestion Respiratory: Reports: cough, dyspnea, wheezes Cardiovascular: Reports: chest pain. Denies: palpitations, orthopnea, edema, syncope Gastrointestinal: Denies: abdominal pain, vomiting Musculoskeletal: Denies: back pain Skin: Denies: rash Neurological: Denies: headache, weakness Past Medical History Past Medical History: Asthma Additional Past Medical History / Comment(s): migraine, ovarian cyst, in- operable fibroid tumor in uterus, History of Any Multi-Drug Resistant Organisms: C-DIFF Date of last positivie culture/infection: 01/2015 Past Surgical History: Appendectomy, Breast Surgery Additional Past Surgical History / Comment(s): BENIGN TUMOR REMOVED FROM BREAST Past Anesthesia/Blood Transfusion Reactions: No Reported Reaction Past Psychological History: Anxiety, Depression Smoking Status: Former smoker Past Alcohol Use History: Rare Past Drug Use History: None Reported - Past Family History Mother Family Medical History: No Reported History General Exam Limitations: no limitations General appearance: alert, in no apparent distress, obese Head exam: Present: atraumatic, normocephalic Eye exam: Present: normal appearance. Absent: scleral icterus, conjunctival injection ENT exam: Present: normal oropharynx Respiratory exam: Present: wheezes. Absent: rales, rhonchi, stridor, accessory muscle use, decreased breath sounds, prolonged expiratory Cardiovascular Exam: Present: regular rate, normal rhythm, normal heart sounds. Absent: systolic murmur, diastolic murmur, rubs, gallop GI/Abdominal exam: Present: soft. Absent: tenderness, guarding, rebound Extremities exam: Present: normal inspection, normal capillary refill. Absent: pedal edema, calf tenderness Neurological exam: Present: alert Skin exam: Present: warm, dry, intact, normal color. Absent: rash Course Vital Signs 07/02/18 07/02/18 07/02/18 20:56 20:59 21:34 Temperature 98.7 F Pulse Rate 98 87 86 Respiratory 19 20 24 Rate Blood Pressure 131/84 128/75 O2 Sat by Pulse 99 98 Oximetry 07/02/18 07/02/18 07/02/18 21:55 21:58 22:53 Temperature 97.8 F Pulse Rate 97 77 80 Respiratory 18 20 20 Rate Blood Pressure 129/79 129/78 O2 Sat by Pulse 100 99 Oximetry Medical Decision Making - Medical Decision Making Patient is a 33-year-old woman presenting with which she feels is consistent with her previous asthma exacerbations. She is feeling markedly better following to nebulized treatments here in emergency department. The patient does still have a little residual wheeze but now able to converse without dyspnea. Will give course of steroid and patient to follow with her physician. Discussed return parameters and appropriate follow-up. Disposition Clinical Impression: Asthma exacerbation Disposition: HOME SELF-CARE Condition: Good Instructions: Asthma (ED) Prescriptions: predniSONE 60 mg PO DAILY #30 tab Is patient prescribed a controlled substance at d/c from ED?: No Referrals: Margy Crowell DO [Primary Care Provider] - 1-2 days
[2018-07-02 21:59] VITALS: RESP 20
--- NOTE | 2018-07-02 22:36 | XR ---
EXAMINATION TYPE: XR chest 2V DATE OF EXAM: 07/02/2018 COMPARISON: 06/17/1718 HISTORY: Short of breath TECHNIQUE: Frontal and lateral views of the chest are obtained. FINDINGS: Heart and mediastinum are normal. Lungs are clear. Diaphragm is normal. Bony thorax appear s normal. Pulmonary vascularity is normal. IMPRESSION: Normal chest. No change.
[2018-07-02] MEDS ORDERED: predniSONE 20 MG TAB PO STA (22:46)
[2018-07-02 22:54] VITALS: BP 129/78; PULSE 80; TEMP 97.8
== END 2018-07-02 23:01 | disposition home or self-care (01) ==
LOC: EC 20:51
DX: J45.901 Unspecified asthma with (acute) exacerbation (principal); Z87.891 Personal history of nicotine dependence; Z88.1 Allergy status to other antibiotic agents; Z88.2 Allergy status to sulfonamides
CPT/HCPCS: 94640; 71046; 99285; J7512

== ENCOUNTER 2018-08-30 21:16 | Emergency (ER) | payer BC ==
[2018-08-30 21:39] VITALS: RESP 18; TEMP 99.1
[2018-08-30] MEDS ORDERED: KETOROLAC 30 MG/ML 1 ML VIAL IM STA (22:07)
[2018-08-30] MEDS ORDERED: methylPREDNISolone SOD SUCCI 125 MG/2 ML VIAL IM ONE (22:07)
[2018-08-30 22:11] LABS: Appearance,Urine Cloudy (Clear); Bilirubin,Urine Negative (Negative); Blood,Urine Negative (Negative); Color,Urine Yellow; Glucose,Urine (UA) Negative (Negative); Ketones,Urine Negative (Negative); Leukocyte Esterase,Urine Moderate (Negative); Mucus,Urine Rare /hpf; Nitrite,Urine Negative (Negative); PH, Urine 5.5 (5.0-8.0); Protein,Urine Trace (Negative); RBC,Urine 1 /hpf (0-5); Specific Gravity,Urine 1.027 (1.001-1.035); Squamous Epithelial Cell,Urine 13 /hpf (0-4); Urobilinogen,Urine <2.0 mg/dL (<2.0); WBC,Urine 1 /hpf (0-5)
--- NOTE | 2018-08-30 22:38 | ED ---
General Adult HPI - General Chief complaint: Back Pain/Injury Stated complaint: Fall,back injury Time Seen by Provider: 08/30/18 21:53 Source: patient, RN notes reviewed Mode of arrival: ambulatory Limitations: no limitations - History of Present Illness Initial comments: 33-year-old female presents to the emergency department for a chief complaint of right buttock and leg pain after near fall occurring 2 days ago. Patient was walking down stairs when she slipped and almost fell. She states she did catch herself and did not hit her back on the stairs. Patient states she believes she "tweaked something". She states since then she has had sharp shooting pain down the right leg. She states it is down the back of the buttocks and down to the right knee. She describes it as searing as well. She denies bladder or bowel changes or saddle anesthesia. Denies significant low back pain. Denies fevers or chills. Patient denies any weakness in the lower extremities. Patient has no other complaints at this time including shortness of breath, chest pain, abdominal pain, nausea or vomiting, headache, or visual changes. - Related Data Previous Rx's Medication Instructions Recorded Albuterol Inhaler [Ventolin Hfa 1 - 2 puff INHALATION RT-Q6H PRN 06/24/18 Inhaler] #1 inhaler predniSONE 60 mg PO DAILY #30 tab 07/02/18 predniSONE 50 mg PO DAILY #5 tablet 08/30/18 Allergies Allergy/AdvReac Type Severity Reaction Status Date / Time azithromycin Allergy Rash/Hives Verified 08/30/18 21:39 [From Zithromax Z-Isauro] cephalexin monohydrate Allergy Rash/Hives Verified 08/30/18 21:39 [From Keflex] sulfamethoxazole Allergy Rash/Hives Verified 08/30/18 21:39 [From Bactrim] trimethoprim [From Bactrim] Allergy Rash/Hives Verified 08/30/18 21:39 Review of Systems ROS Statement: Those systems with pertinent positive or pertinent negative responses have been documented in the HPI. ROS Other: All systems not noted in ROS Statement are negative. Past Medical History Past Medical History: Asthma Additional Past Medical History / Comment(s): migraine, ovarian cyst, in- operable fibroid tumor in uterus, History of Any Multi-Drug Resistant Organisms: C-DIFF Date of last positivie culture/infection: 01/2015 Past Surgical History: Appendectomy, Breast Surgery Additional Past Surgical History / Comment(s): BENIGN TUMOR REMOVED FROM BREAST Past Anesthesia/Blood Transfusion Reactions: No Reported Reaction Past Psychological History: Anxiety, Depression Smoking Status: Former smoker Past Alcohol Use History: Rare Past Drug Use History: None Reported - Past Family History Mother Family Medical History: No Reported History General Exam Limitations: no limitations General appearance: alert, in no apparent distress Head exam: Present: atraumatic, normocephalic, normal inspection Eye exam: Present: normal appearance, PERRL, EOMI. Absent: scleral icterus, conjunctival injection, periorbital swelling ENT exam: Present: normal exam, mucous membranes moist Neck exam: Present: normal inspection, full ROM. Absent: tenderness, meningismus, lymphadenopathy Respiratory exam: Present: normal lung sounds bilaterally. Absent: respiratory distress, wheezes, rales, rhonchi, stridor Cardiovascular Exam: Present: regular rate, normal rhythm, normal heart sounds. Absent: systolic murmur, diastolic murmur, rubs, gallop, clicks Extremities exam: Present: full ROM (Full range motion of the right lower extremity), normal capillary refill (Capillary refill less than 2 seconds in the right lower extremity, DP pulse 2+), other (Sensation intact in the right lower extremity) Back exam: Absent: tenderness, paraspinal tenderness, vertebral tenderness Neurological exam: Present: alert, oriented X3, CN II-XII intact Psychiatric exam: Present: normal affect, normal mood Course Vital Signs 08/30/18 21:35 Temperature 99.1 F Pulse Rate 98 Respiratory 18 Rate Blood Pressure 156/72 O2 Sat by Pulse 98 Oximetry Medical Decision Making - Medical Decision Making 33-year-old female presents to the emergency department for a chief of shooting pain on the right leg. Patient almost fell 2 days ago but did not hit her back. She thinks she tweaked something she has had this shooting pain. Positive straight leg raise test. Neurovascular intact. Pain does sound sciatic in nature. Patient was given steroid and Toradol here in the emergency department. Denies any chance of . Patient will be given a prescription for steroids and will take Motrin and Tylenol at home. She will follow-up with Dr. Shoemaker in one to 2 days. She will return here if she has worsening symptoms such as bladder or bowel changes or lower extremity weakness. - Lab Data Lab Results 08/30/18 08/30/18 Range/Units 22:00 22:00 Urine Color Yellow Urine Appearance Cloudy H (Clear) Urine pH 5.5 (5.0-8.0) Ur Specific [place] 1.027 (1.001-1.035) Urine Protein Trace H (Negative) Urine Glucose (UA) Negative (Negative) Urine Ketones Negative (Negative) Urine Blood Negative (Negative) Urine Nitrite Negative (Negative) Urine Bilirubin Negative (Negative) Urine Urobilinogen <2.0 (<2.0) mg/dL Ur Leukocyte Esterase Moderate H (Negative) Urine RBC 1 (0-5) /hpf Urine WBC 1 (0-5) /hpf Ur Squamous Epith Cells 13 H (0-4) /hpf Urine Mucus Rare H (None) /hpf Urine HCG, Qual Not Detected (Not Detectd) Disposition Clinical Impression: Sciatic leg pain Disposition: HOME SELF-CARE Condition: Good Instructions (If sedation given, give patient instructions): Lumbar Radiculopathy (ED) Additional Instructions: Take steroids as directed. Please follow up with primary care and Dr Shoemaker in 1 -2 days. Return to the emergency department if you have any worsening symptoms. Prescriptions: predniSONE 50 mg PO DAILY #5 tablet Is patient prescribed a controlled substance at d/c from ED?: No Referrals: Margy Crowell DO [Primary Care Provider] - 1-2 days Time of Disposition: 22:36
[2018-08-30 22:53] VITALS: BP 143/78; PULSE 65
== END 2018-08-30 22:51 | disposition home or self-care (01) ==
LOC: EC 21:16
DX: M54.31 Sciatica, right side (principal); Z88.1 Allergy status to other antibiotic agents; Z88.2 Allergy status to sulfonamides; Z87.891 Personal history of nicotine dependence; W10.9XXA Fall (on) (from) unspecified stairs and steps, initial encounter; Y93.01 Activity, walking, marching and hiking
CPT/HCPCS: 81001; 81025; 99283; 96372 ×2; J2930; J1885

== ENCOUNTER 2018-10-16 18:16 | Emergency (ER) | payer BC ==
[2018-10-16 18:32] VITALS: BP 129/73; PULSE 79; RESP 18; TEMP 98.5
[2018-10-16] MEDS ORDERED: ONDANSETRON ODT 4 MG TAB PO STA (18:43)
[2018-10-16] MEDS ORDERED: KETOROLAC 30 MG/ML 1 ML VIAL IM STA (18:43)
[2018-10-16] MEDS ORDERED: diphenhydrAMINE 50 MG CAP PO STA (18:43)
[2018-10-16 19:34] LABS: Appearance,Urine Cloudy (Clear); Bilirubin,Urine Negative (Negative); Blood,Urine Moderate (Negative); Color,Urine Yellow; Glucose,Urine (UA) Negative (Negative); Ketones,Urine Negative (Negative); Leukocyte Esterase,Urine Small (Negative); Mucus,Urine Rare /hpf; Nitrite,Urine Negative (Negative); Protein,Urine Trace (Negative); RBC,Urine 35 /hpf (0-5); Specific Gravity,Urine 1.019 (1.001-1.035); Squamous Epithelial Cell,Urine 4 /hpf (0-4); Urobilinogen,Urine <2.0 mg/dL (<2.0); WBC,Urine 5 /hpf (0-5)
--- NOTE | 2018-10-16 19:52 | XR ---
EXAMINATION TYPE: XR chest 2V DATE OF EXAM: 10/16/2018 COMPARISON: 07/02/2018 HISTORY: Short of breath. Chest pain TECHNIQUE: Frontal and lateral views of the chest are obtained. FINDINGS: Heart and mediastinum are normal. Lungs are clear. Diaphragm is normal. Bony thorax appear s normal. IMPRESSION: Normal chest. No change.
--- NOTE | 2018-10-16 19:57 | ED ---
General Adult HPI - General Chief complaint: Headache Stated complaint: flu like symptoms Time Seen by Provider: 10/16/18 18:33 Source: patient Mode of arrival: ambulatory Limitations: no limitations - History of Present Illness Initial comments: 33-year-old female past medical history of migraines presents today for chief complaint of body aches, headache and sinus pressure. Patient states that she has sinus pressure, body and chills. She states she is concerned she has a flu. She states she has had sick contacts including pupil positive for influenza A. Patient states she has had a headache, she states it is no worse than her typical migraines. Patient denies any visual changes, diplopia, muscle weakness, neck stiffness, photophobia. Patient states usually gets Zofran, Benadryl and Toradol which usually alleviates symptoms. Patient denies taking temperature at home however she states she felt warm and took Tylenol prior to arrival.. Patient that she has had a mild cough, denies ear pain. She states she did have vomiting and diarrhea for 3 days however this has been subsided for the past 24 hours. States she has had a mild sore throat as a difficulty breathing or swallowing. Patient denies any recent shortness of breath, chest pain, back pain, abdominal pain, nausea,, numbness or tingling, dysuria or hematuria, constipation,, or any other complaints. Arrival patient's vital signs within acceptable limits. - Related Data Home Medications Medication Instructions Recorded Confirmed Ibuprofen [Motrin] 800 mg PO TID PRN 10/16/18 10/16/18 PARoxetine [Paxil] 10 mg PO HS 10/16/18 10/16/18 Previous Rx's Medication Instructions Recorded Albuterol Inhaler [Ventolin Hfa 1 - 2 puff INHALATION RT-Q6H PRN 06/24/18 Inhaler] #1 inhaler Amoxicillin/Potassium Clav 1 tab PO Q12HR 10 Days #20 tab 10/16/18 [Augmentin 875-125 Tablet] Ibuprofen 800 mg PO Q8H PRN 7 Days #21 tablet 10/16/18 Ondansetron Odt [Zofran Odt] 4 mg PO Q12HR PRN 2 Days #4 tab 10/16/18 Allergies Allergy/AdvReac Type Severity Reaction Status Date / Time azithromycin Allergy Rash/Hives Verified 10/16/18 19:11 [From Zithromax Z-Isauro] cephalexin monohydrate Allergy Rash/Hives Verified 10/16/18 19:11 [From Keflex] sulfamethoxazole Allergy Rash/Hives Verified 10/16/18 19:11 [From Bactrim] trimethoprim [From Bactrim] Allergy Rash/Hives Verified 10/16/18 19:11 Review of Systems ROS Statement: Those systems with pertinent positive or pertinent negative responses have been documented in the HPI. ROS Other: All systems not noted in ROS Statement are negative. Past Medical History Past Medical History: Asthma Additional Past Medical History / Comment(s): migraine, ovarian cyst, in- operable fibroid tumor in uterus, History of Any Multi-Drug Resistant Organisms: C-DIFF Date of last positivie culture/infection: 01/2015 Past Surgical History: Appendectomy, Breast Surgery Additional Past Surgical History / Comment(s): BENIGN TUMOR REMOVED FROM BREAST Past Anesthesia/Blood Transfusion Reactions: No Reported Reaction Past Psychological History: Anxiety, Depression Smoking Status: Former smoker Past Alcohol Use History: Rare Past Drug Use History: None Reported - Past Family History Mother Family Medical History: No Reported History General Exam - General Exam Comments Initial Comments: General: The patient is awake and alert, in no distress, and does not appear acutely ill. Eye: +3 mm pupils are equal, round and reactive to light, extra-ocular movements are intact. No nystagmus. There is normal conjunctiva bilaterally. No signs of icterus. No photophobia Ears, nose, mouth and throat: There are moist mucous membranes and no oral lesions. Oropharynx was not erythematous there is no tonsillar enlargement exudates or lesions. Uvula midline. Tympanic membranes are not erythematous or is no effusions bulging or retraction. No tenderness to palpation of the mas toid. No anterior cervical lymphadenopathy. Rhinorrhea, clear and bilateral nares. No tripoding, no drooling. Patient is tender to palpation over the maxillary sinuses. Neck: The neck is supple, there is no tenderness or JVD. No nuchal rigidity negative Brudzinski and Kernig Cardiovascular: There is a regular rate and rhythm. No murmur, rub or gallop is appreciated. Respiratory: Lungs are clear to auscultation, respirations are non-labored, breath sounds are equal. No wheezes, stridor, rales, or rhonchi. No re tractions or abdominal breathing. Gastrointestinal: Soft, non-distended, non-tender abdomen without masses or organomegaly noted. There is no rebound or guarding present. Bowel sounds are unremarkable. Musculoskeletal: Normal ROM, no tenderness. Strength 5/5. Sensation intact. Radial pulses equal bilaterally 2+. Neurological: A&O x 3. CN II-XII intact, There are no obvious motor or sensory deficits. Coordination appears grossly intact. Speech appears normal, no muffling. Skin: Skin is warm and dry and no rashes or lesions are noted. No extremity edema Psychiatric: Cooperative Limitations: no limitations Course Vital Signs 10/16/18 18:29 Temperature 98.5 F Pulse Rate 79 Respiratory 18 Rate Blood Pressure 129/73 O2 Sat by Pulse 99 Oximetry Medical Decision Making - Medical Decision Making 33yo female presenting for body aches, congestion, sinus pressure. Physical examination findings concerning for sinusitis. Chest x-ray negative. Influenza testing negative. Strep test negative. Patient be given Augmentin. Patient discharged with instruction for symptomatically treatment. Patient requesting Zofran as she states she has had some nausea since she had vomiting and diarrhea 3 days ago, none since. Patient provided perception. At this time feel patient is stable for discharge with return parameters as discussed with patient. I discussed case with a provided Dr. Kat prior to patient's discharge was agreeable plan. Patient denied questions appeared happy with plan. - Lab Data Lab Results 10/16/18 10/16/18 10/16/18 Range/Units 19:19 19:19 19:19 Urine Color Yellow Urine Appearance Cloudy H (Clear) Urine pH 6.0 (5.0-8.0) Ur Specific [place] 1.019 (1.001-1.035) Urine Protein Trace H (Negative) Urine Glucose (UA) Negative (Negative) Urine Ketones Negative (Negative) Urine Blood Moderate H (Negative) Urine Nitrite Negative (Negative) Urine Bilirubin Negative (Negative) Urine Urobilinogen <2.0 (<2.0) mg/dL Ur Leukocyte Esterase Small H (Negative) Urine RBC 35 H (0-5) /hpf Urine WBC 5 (0-5) /hpf Ur Squamous Epith Cells 4 (0-4) /hpf Urine Mucus Rare H (None) /hpf Influenza Type A RNA Not Detected (Not Detectd) Influenza Type B (PCR) Not Detected (Not Detectd) Group A Strep Rapid Negative (Negative) Disposition Clinical Impression: Sinusitis Disposition: HOME SELF-CARE Condition: Good Instructions (If sedation given, give patient instructions): Sinusitis (ED) Additional Instructions: Please use medication as discussed. Please follow-up with family doctor in the next 2 days of symptoms have not improved. Please return to emergency room if the symptoms increase or worsen or for any other concerns. Prescriptions: Amoxicillin/Potassium Clav [Augmentin 875-125 Tablet] 1 tab PO Q12HR 10 Days #20 tab Ibuprofen 800 mg PO Q8H PRN 7 Days #21 tablet PRN Reason: Pain Ondansetron Odt [Zofran Odt] 4 mg PO Q12HR PRN 2 Days #4 tab PRN Reason: Nausea Is patient prescribed a controlled substance at d/c from ED?: No Referrals: Margy Crowell DO [Primary Care Provider] - 1-2 days Time of Disposition: 19:57
== END 2018-10-16 20:28 | disposition home or self-care (01) ==
LOC: EC 18:16
DX: J32.9 Chronic sinusitis, unspecified (principal); R11.0 Nausea; F32.9 Major depressive disorder, single episode, unspecified; F41.9 Anxiety disorder, unspecified; Z87.891 Personal history of nicotine dependence; Z88.1 Allergy status to other antibiotic agents; Z88.2 Allergy status to sulfonamides; Z79.899 Other long term (current) drug therapy; Z86.69 Personal history of other diseases of the nervous system and sense organs; Z90.49 Acquired absence of other specified parts of digestive tract
CPT/HCPCS: 81001; 87081; 87430; 87502; 71046; 99283; 96372; J1885

== ENCOUNTER 2019-01-24 23:51 | Emergency (ER) | payer BC ==
[2019-01-25 00:08] VITALS: BP 145/96; PULSE 90; RESP 18; TEMP 98.6
[2019-01-25] MEDS ORDERED: DIPH,PERTUS(ACELL)TETVAC-LF 0.5 ML VIAL IM ONE (00:28)
[2019-01-25] MEDS ORDERED: ACETAMINOPHEN TAB 325 MG TAB PO STA (00:44)
[2019-01-25] MEDS ORDERED: BACITRACIN 500 UNIT/GM OINT 28.4 GM TUBE TOPICAL ONE (00:44)
--- NOTE | 2019-01-25 00:46 | ED ---
General Adult HPI - General Chief complaint: Burn/Smoke Inhalation Stated complaint: Burn on foot Time Seen by Provider: 01/25/19 00:12 Source: patient, RN notes reviewed, old records reviewed Mode of arrival: ambulatory Limitations: no limitations - History of Present Illness Initial comments: 33-year-old female patient presents to ED with chief complaint of stepping on a flat iron causing a burn on her right foot. Patient denies any other complaints at this time. Does not know date of last tetanus. Systemic: Pt denies fatigue, fever/chills, rash. Pt denies weakness, night sweats, weight loss. Neuro: Pt denies headache, visual disturbances, syncope or pre-syncope. HEENT: Pt denies ocular discharge or irritation, otalgia, rhinorrhea, pharyngiti s or notable lymphadenopathy. Cardiopulmonary: Pt denies chest pain, SOB, heart palpitations, dyspnea on exertion. Abdominal/GI: Pt denies abdominal pain, n/v/d. : Pt denies dysuria, burning w/ urination, frequency/urgency. Denies new onset urinary or bowel incontinence. MSK: Pt denies myalgia, loss of strength or function in extremities. Neuro: Pt denies new onset weakness, paresthesias. - Related Data Home Medications Medication Instructions Recorded Confirmed Ibuprofen [Motrin] 800 mg PO TID PRN 10/16/18 10/16/18 PARoxetine [Paxil] 10 mg PO HS 10/16/18 10/16/18 Previous Rx's Medication Instructions Recorded Albuterol Inhaler [Ventolin Hfa 1 - 2 puff INHALATION RT-Q6H PRN 06/24/18 Inhaler] #1 inhaler Amoxicillin/Potassium Clav 1 tab PO Q12HR 10 Days #20 tab 10/16/18 [Augmentin 875-125 Tablet] Ibuprofen 800 mg PO Q8H PRN 7 Days #21 tablet 10/16/18 Ondansetron Odt [Zofran Odt] 4 mg PO Q12HR PRN 2 Days #4 tab 10/16/18 Bacitracin Oint 28.4 gm TOPICAL BID 10 Days #1 tube 01/25/19 Allergies Allergy/AdvReac Type Severity Reaction Status Date / Time azithromycin Allergy Rash/Hives Verified 01/25/19 00:08 [From Zithromax Z-Isauro] cephalexin monohydrate Allergy Rash/Hives Verified 01/25/19 00:08 [From Keflex] sulfamethoxazole Allergy Rash/Hives Verified 01/25/19 00:08 [From Bactrim] trimethoprim [From Bactrim] Allergy Rash/Hives Verified 01/25/19 00:08 Review of Systems ROS Statement: Those systems with pertinent positive or pertinent negative responses have been documented in the HPI. ROS Other: All systems not noted in ROS Statement are negative. Past Medical History Past Medical History: Asthma Additional Past Medical History / Comment(s): migraine, ovarian cyst, in-opera ble fibroid tumor in uterus, History of Any Multi-Drug Resistant Organisms: C-DIFF Date of last positivie culture/infection: 01/2015 Past Surgical History: Appendectomy, Breast Surgery Additional Past Surgical History / Comment(s): BENIGN TUMOR REMOVED FROM BREAST Past Anesthesia/Blood Transfusion Reactions: No Reported Reaction Past Psychological History: Anxiety, Depression Smoking Status: Former smoker Past Alcohol Use History: Rare Past Drug Use History: None Reported - Past Family History Mother Family Medical History: No Reported History General Exam - General Exam Comments Initial Comments: Constitutional: NAD, AOX3, Pt has pleasant affect. HEENT: NC/AT, trachea midline, neck supple, no lymphadenopathy. Posterior pharynx non erythematous, without exudates. External ears appear normal, without discharge. Mucous membranes moist. Eyes PERRLA, EOM intact. There is no scleral icterus. No pallor noted. Cardiopulmonary: RRR, no murmurs, rubs or gallops, no JVD noted. Lungs CTAB in anterior and posterior graham. No peripheral edema. Abdominal exam: Abdomen soft and non-distended. Abdomen non-tender to palpation in all 4 quadrants. Bowel sounds active in LLQ. No hepatosplenomegaly. No ecchymosis Neuro: CN II-XII grossly intact. No nuchal rigidity. No raccon eyes, no willson sign, no hemotympanum. No cervical spinal tenderness. MSK: Superficial partial-thickness burn noted on the volar aspect of right foot as well as dorsal aspect of right foot. Mild amount of blistering noted on dorsal aspect. Mild erythema noted that he aspect. Area cleaned and irrigated, bacitracin ointment applied. No posterior calf tenderness bilaterally, homans sign negative bilaterally. Posterior tibialis and radial pulse +2 bilaterally. Sensation intact in upper and lower extremities. Full active ROM in upper and lower extremities, 5/5 stregnth. Limitations: no limitations Course Vital Signs 01/25/19 00:05 Temperature 98.6 F Pulse Rate 90 Respiratory 18 Rate Blood Pressure 145/96 O2 Sat by Pulse 99 Oximetry Medical Decision Making - Medical Decision Making 33-year-old female patient presents to ED with chief complaint of stepping on a flat iron causing a burn on her right foot. Patient denies any other complaints at this time. Does not know date of last tetanus. Pt VSS, afebrile. Physical exam displayed: Superficial partial-thickness burn noted on the volar aspect of right foot as well as dorsal aspect of right foot. Mild amount of blistering not ed on dorsal aspect. Mild erythema noted that he aspect. Area cleaned and irrigated, bacitracin ointment applied. Patient tetanus updated. Patient was discharged to follow up with primary care prior 1-2 days. Patient will use bacitracin ointment on burn twice daily for 10 days. A monitor for signs symptoms of infection. Return to ER patient worsens. Case discussed with Dr. Brown. Disposition Clinical Impression: Superficial partial thickness burn of lower extremity Disposition: HOME SELF-CARE Condition: Stable Instructions (If sedation given, give patient instructions): Superficial Burn (ED) Additional Instructions: Patient to adhere to previously discussed treatment plan and will take medication(s) as directed. Patient to follow up with PCP in 1-2 days. Patient to return to ED if symptoms do not improve. Please use bacitracin twice a day for 10 days. Monitor for infection. Follow up with primary care provider in 1-2 days. Return to ER if condition worsens. Prescriptions: Bacitracin Oint 28.4 gm TOPICAL BID 10 Days #1 tube Is patient prescribed a controlled substance at d/c from ED?: No Referrals: Margy Crowell DO [Primary Care Provider] - 1-2 days
== END 2019-01-25 01:00 | disposition home or self-care (01) ==
LOC: EC 23:51
DX: T25.221A Burn of second degree of right foot, initial encounter (principal); F32.9 Major depressive disorder, single episode, unspecified; Z87.891 Personal history of nicotine dependence; Z79.899 Other long term (current) drug therapy; Z88.1 Allergy status to other antibiotic agents; Z88.2 Allergy status to sulfonamides; Z23 Encounter for immunization; X15.8XXA Contact with other hot household appliances, initial encounter
CPT/HCPCS: 90471; 90715; 99283

== ENCOUNTER 2019-06-14 23:12 | Emergency (ER) | payer BC ==
[2019-06-14 23:16] VITALS: RESP 18
[2019-06-14] MEDS ORDERED: IPRATROPIUM-ALBUTEROL 3 ML NEB INHALATION STA (23:38)
[2019-06-14] MEDS ORDERED: guaiFENesin 600 MG TABLET.ER PO STA (23:38)
[2019-06-14] MEDS ORDERED: predniSONE 50 MG TAB PO STA (23:38)
--- NOTE | 2019-06-14 23:58 | XR ---
EXAMINATION TYPE: XR chest 2V DATE OF EXAM: 06/14/2019 COMPARISON: 10/16/2018 HISTORY: Short of breath TECHNIQUE: Frontal and lateral views of the chest are obtained. FINDINGS: Heart and mediastinum are normal. Lungs are clear. Diaphragm is normal. Bony thorax appear s normal. IMPRESSION: Normal chest. No change.
[2019-06-15] MEDS ORDERED: AMOXICILLIN 500MG STARTER PACK 3 CAP BTL PO STA (00:07)
--- NOTE | 2019-06-15 00:07 | ED ---
URI HPI - General Chief Complaint: Upper Respiratory Infection Stated Complaint: SOB Time Seen by Provider: 06/14/19 23:22 Source: patient Mode of arrival: ambulatory Limitations: no limitations - History of Present Illness Initial Comments: 34-year-old female patient presents to the emergency department today for evaluation of cough, nasal congestion, and sore throat. Patient states she's been sick for the last 2-3 days with symptoms. States that she is coughing up yellow to green sputum. States that she does feel short of breath with some chest tightness. States she's been using her albuterol inhaler at home without much relief. States she feels chilled and feverish. She is also reporting right ear pain. Denies any drainage from the ears. Denies taking any medication other than the albuterol for her symptoms. Denies smoking history. Denies chance of . Patient denies any recent rash, chest pain, abdominal pain, nausea, vomiting, diarrhea, constipation, back pain, numbness, tingling, dizziness, weakness, hematuria, dysuria, urinary urgency, urinary frequency, headache, visual changes, or any other complaints. - Related Data Home Medications Medication Instructions Recorded Confirmed Ibuprofen [Motrin] 800 mg PO TID PRN 10/16/18 10/16/18 PARoxetine [Paxil] 10 mg PO HS 10/16/18 10/16/18 Previous Rx's Medication Instructions Recorded Albuterol Inhaler [Ventolin Hfa 1 - 2 puff INHALATION RT-Q6H PRN 06/24/18 Inhaler] #1 inhaler Amoxicillin/Potassium Clav 1 tab PO Q12HR 10 Days #20 tab 10/16/18 [Augmentin 875-125 Tablet] Ibuprofen 800 mg PO Q8H PRN 7 Days #21 tablet 10/16/18 Ondansetron Odt [Zofran Odt] 4 mg PO Q12HR PRN 2 Days #4 tab 10/16/18 Bacitracin Oint 28.4 gm TOPICAL BID 10 Days #1 tube 01/25/19 Amoxicillin 875 mg PO Q12HR #20 tablet 06/15/19 guaiFENesin-DM 600/30MG [Mucinex 1 each PO Q12HR #10 tab.er.12h 06/15/19 Dm] predniSONE 50 mg PO DAILY #5 tablet 06/15/19 Allergies Allergy/AdvReac Type Severity Reaction Status Date / Time azithromycin Allergy Rash/Hives Verified 01/25/19 00:08 [From Zithromax Z-Isauro] cephalexin monohydrate Allergy Rash/Hives Verified 01/25/19 00:08 [From Keflex] sulfamethoxazole Allergy Rash/Hives Verified 01/25/19 00:08 [From Bactrim] trimethoprim [From Bactrim] Allergy Rash/Hives Verified 01/25/19 00:08 Review of Systems ROS Statement: Those systems with pertinent positive or pertinent negative responses have been documented in the HPI. ROS Other: All systems not noted in ROS Statement are negative. Past Medical History Past Medical History: Asthma Additional Past Medical History / Comment(s): migraine, ovarian cyst, in- operable fibroid tumor in uterus, History of Any Multi-Drug Resistant Organisms: C-DIFF Date of last positivie culture/infection: 01/2015 Past Surgical History: Appendectomy, Breast Surgery Additional Past Surgical History / Comment(s): BENIGN TUMOR REMOVED FROM BREAST Past Anesthesia/Blood Transfusion Reactions: No Reported Reaction Past Psychological History: Anxiety, Depression Smoking Status: Former smoker Past Alcohol Use History: Rare Past Drug Use History: None Reported - Past Family History Mother Family Medical History: No Reported History General Exam Limitations: no limitations General appearance: alert, in no apparent distress, other (Physical well- developed, well-nourished adult female patient in no acute distress. Vital signs upon presentation are temperature 98.0F, pulse 100, respirations 18, blood pressure 151/97, pulse ox 97% on room air.) Eye exam: Present: normal appearance, PERRL, EOMI. Absent: scleral icterus, conjunctival injection, periorbital swelling ENT exam: Present: normal exam, normal oropharynx, mucous membranes moist Respiratory exam: Present: normal lung sounds bilaterally. Absent: respiratory distress, wheezes, rales, rhonchi, stridor Cardiovascular Exam: Present: regular rate, normal rhythm, normal heart sounds. Absent: systolic murmur, diastolic murmur, rubs, gallop, clicks GI/Abdominal exam: Present: soft, normal bowel sounds. Absent: distended, tenderness, guarding, rebound, rigid Neurological exam: Present: alert, oriented X3, CN II-XII intact Psychiatric exam: Present: normal affect, normal mood Skin exam: Present: warm, dry, intact, normal color. Absent: rash Course Vital Signs 06/14/19 06/14/19 06/15/19 23:13 23:55 00:04 Temperature 98.0 F Pulse Rate 100 72 84 Respiratory 18 Rate Blood Pressure 151/97 O2 Sat by Pulse 97 Oximetry 06/15/19 00:47 Temperature 97.9 F Pulse Rate 94 Respiratory 18 Rate Blood Pressure 129/76 O2 Sat by Pulse 98 Oximetry Medical Decision Making - Medical Decision Making 34-year-old female patient presents to the emergency department today for evaluation of cough, congestion, and right ear pain. Physical examination did reveal right tympanic membrane bulging and erythema. Lungs are clear to auscultation with good air movement. Vital signs are satisfactory. A chest x- ray was obtained and showed no acute abnormalities. Patient was given albuterol treatment and prednisone here in the emergency department. Upon reevaluation she does report improvement of symptoms. Patient symptoms are consistent with acute bronchitis. She also has right otitis media. We'll treat with amoxicillin, Mucinex, and prednisone. She does have an inhaler at home, she is urged to continue this. She is instructed to follow-up with her primary care physician for recheck in 1-2 days. Return parameters discussed in detail. She verbalizes understanding and agrees with this plan. - Radiology Data Radiology results: report reviewed, image reviewed Two-view x-ray of the chest is obtained. Report was reviewed in its entirety. Impression by Dr. Chavez shows normal chest. No change. Disposition Clinical Impression: Acute bronchitis, Right otitis media Disposition: HOME SELF-CARE Condition: Good Instructions (If sedation given, give patient instructions): Ear Infection (ED), Acute Bronchitis (ED) Additional Instructions: Take medications as directed. Follow-up with your primary care physician for recheck in 1-2 days. Return to the emergency department immediately for any new, worsening, or concerning symptoms. Prescriptions: Amoxicillin 875 mg PO Q12HR #20 tablet guaiFENesin-DM 600/30MG [Mucinex Dm] 1 each PO Q12HR #10 tab.er.12h predniSONE 50 mg PO DAILY #5 tablet Is patient prescribed a controlled substance at d/c from ED?: No Referrals: Margy Crowell DO [Primary Care Provider] - 1-2 days Time of Disposition: 00:07
[2019-06-15 00:49] VITALS: BP 129/76; PULSE 94; TEMP 97.9
== END 2019-06-15 00:48 | disposition home or self-care (01) ==
LOC: EC 23:12
DX: J20.9 Acute bronchitis, unspecified (principal); H66.91 Otitis media, unspecified, right ear; J02.9 Acute pharyngitis, unspecified; R09.81 Nasal congestion; F32.9 Major depressive disorder, single episode, unspecified; F41.9 Anxiety disorder, unspecified; Z87.891 Personal history of nicotine dependence; Z88.1 Allergy status to other antibiotic agents; Z88.2 Allergy status to sulfonamides; Z79.899 Other long term (current) drug therapy
CPT/HCPCS: 94640; 71046; 99285; J7512

== ENCOUNTER 2019-10-08 17:46 | Emergency (ER) | payer BC ==
[2019-10-08 18:36] VITALS: BP 132/84; PULSE 91; RESP 20; TEMP 98.7
--- NOTE | 2019-10-08 20:27 | XR ---
EXAMINATION: XR chest 2V DATE AND TIME: 10/08/2019 8:06 PM CLINICAL INDICATION: PHH; cough TECHNIQUE: Departmental protocol COMPARISON: 06/15/2019 FINDINGS: The lungs are clear. The pleural spaces are negative. The cardiac silhouette is not enlarged. The remainder of the mediastinal silhouette is unremarkable. The skeletal structures and soft tissues are negative for acute findings. IMPRESSION: NO ACUTE PROCESS.
--- NOTE | 2019-10-08 21:09 | ED ---
URI HPI - General Chief Complaint: Upper Respiratory Infection Stated Complaint: ARMAND, body aches Time Seen by Provider: 10/08/19 20:36 Source: patient Mode of arrival: ambulatory Limitations: no limitations - History of Present Illness Initial Comments: Patient is a 34-year-old female, with history of asthma, presents emergency Department with complaints of body aches, fever, mild cough, headache, congestion that started suddenly yesterday. Patient denies any recent travel. She denies any nausea or vomiting, and abdominal pain. She does admit to one episode of diarrhea yesterday. She has been eating and drinking as normal. She denies chest pain, shortness of breath. She does admit to mild burning when she coughs. She has no other complaints at this time. She has no other pertinent past medical history. Upon arrival to the ER, her vital signs are stable. - Related Data Home Medications Medication Instructions Recorded Confirmed Ibuprofen [Motrin] 800 mg PO TID PRN 10/16/18 10/16/18 PARoxetine [Paxil] 10 mg PO HS 10/16/18 10/16/18 Previous Rx's Medication Instructions Recorded Albuterol Inhaler [Ventolin Hfa 1 - 2 puff INHALATION RT-Q6H PRN 06/24/18 Inhaler] #1 inhaler Amoxicillin/Potassium Clav 1 tab PO Q12HR 10 Days #20 tab 10/16/18 [Augmentin 875-125 Tablet] Ibuprofen 800 mg PO Q8H PRN 7 Days #21 tablet 10/16/18 Ondansetron Odt [Zofran Odt] 4 mg PO Q12HR PRN 2 Days #4 tab 10/16/18 Bacitracin Oint 28.4 gm TOPICAL BID 10 Days #1 tube 01/25/19 Amoxicillin 875 mg PO Q12HR #20 tablet 06/15/19 guaiFENesin-DM 600/30MG [Mucinex 1 each PO Q12HR #10 tab.er.12h 06/15/19 Dm] predniSONE 50 mg PO DAILY #5 tablet 06/15/19 methylPREDNISolone [Medrol Dose 4 mg PO DIRECTED #1 pack 10/08/19 Pack] Allergies Allergy/AdvReac Type Severity Reaction Status Date / Time azithromycin Allergy Rash/Hives Verified 10/08/19 18:34 [From Zithromax Z-Isauro] cephalexin monohydrate Allergy Rash/Hives Verified 10/08/19 18:34 [From Keflex] sulfamethoxazole Allergy Rash/Hives Verified 10/08/19 18:34 [From Bactrim] trimethoprim [From Bactrim] Allergy Rash/Hives Verified 10/08/19 18:34 Review of Systems ROS Statement: Those systems with pertinent positive or pertinent negative responses have been documented in the HPI. ROS Other: All systems not noted in ROS Statement are negative. Past Medical History Past Medical History: Asthma Additional Past Medical History / Comment(s): migraine, ovarian cyst, in- operable fibroid tumor in uterus, History of Any Multi-Drug Resistant Organisms: C-DIFF Date of last positivie culture/infection: 01/2015 Past Surgical History: Appendectomy, Breast Surgery Additional Past Surgical History / Comment(s): BENIGN TUMOR REMOVED FROM BREAST Past Anesthesia/Blood Transfusion Reactions: No Reported Reaction Past Psychological History: Anxiety, Depression Smoking Status: Former smoker Past Alcohol Use History: Rare Past Drug Use History: None Reported - Past Family History Mother Family Medical History: No Reported History General Exam - General Exam Comments Initial Comments: GENERAL: Well-appearing, well-nourished and in no acute distress. HEAD: Atraumatic, normocephalic. EYES: Pupils equal round and reactive to light, extraocular movements intact, sclera anicteric, conjunctiva are normal. ENT: TMs normal, nares patent, oropharynx clear without exudates. Moist mucous membranes. NECK: Normal range of motion, supple without lymphadenopathy or JVD. LUNGS: Breath sounds clear to auscultation bilaterally and equal. No wheezes rales or rhonchi. HEART: Regular rate and rhythm without murmurs, rubs or gallops. ABDOMEN: Soft, nontender, normoactive bowel sounds. No guarding, no rebound. No masses appreciated. : Deferred EXTREMITIES: Normal range of motion, no pitting or edema. No clubbing or cyanosis. NEUROLOGICAL: Normal speech, normal gait. PSYCH: Normal mood, normal affect. SKIN: Warm, Dry, normal turgor, no rashes or lesions noted. Limitations: no limitations Course Vital Signs 10/08/19 18:34 Temperature 98.7 F Pulse Rate 91 Respiratory 20 Rate Blood Pressure 132/84 O2 Sat by Pulse 100 Oximetry Medical Decision Making - Medical Decision Making Patient is a 34-year-old female presenting with flulike symptoms since yesterday. She does have a history of asthma. Vital signs are stable. Exam is unremarkable. Influenza test is negative. Chest x-ray shows no acute findings. I discussed with patient this is most likely viral in nature. Given her history of asthma, steroids will be prescribed. She will continue with Tylenol and Motrin as needed for fever and symptom control. Work note was given. She is in agreement with this plan of care. Return parameters were discussed with the patient she verbalized understanding. Case discused with Dr. Murillo. - Lab Data Lab Results 10/08/19 Range/Units 18:37 Influenza Type A RNA Not Detected (Not Detectd) Influenza Type B (PCR) Not Detected (Not Detectd) Disposition Clinical Impression: Viral infection Disposition: HOME SELF-CARE Condition: Stable Instructions (If sedation given, give patient instructions): Influenza (ED) Additional Instructions: Please return to the Emergency Department if symptoms worsen or any other concerns. Take steroids as prescribed. Continue with Tylenol or Motrin for fever control. Follow up with PCP as needed. Prescriptions: methylPREDNISolone [Medrol Dose Pack] 4 mg PO DIRECTED #1 pack Is patient prescribed a controlled substance at d/c from ED?: No Referrals: Margy Crowell DO [Primary Care Provider] - 1-2 days
== END 2019-10-08 22:22 | disposition home or self-care (01) ==
LOC: EC 17:46
DX: B34.9 Viral infection, unspecified (principal); F41.9 Anxiety disorder, unspecified; F32.9 Major depressive disorder, single episode, unspecified; Z79.899 Other long term (current) drug therapy; Z87.891 Personal history of nicotine dependence; Z88.1 Allergy status to other antibiotic agents; Z88.2 Allergy status to sulfonamides
CPT/HCPCS: 71046; 87502; 99283

== ENCOUNTER 2020-03-17 11:53 | Emergency (ER) | payer BC, OTHER ==
--- NOTE | 2020-03-17 12:58 | ED ---
Wound/Laceration HPI - General Chief Complaint: Wound/Laceration Stated Complaint: [facility] fall face injury Time Seen by Provider: 03/17/20 12:12 Source: patient, RN notes reviewed, old records reviewed Mode of arrival: ambulatory Limitations: no limitations - History of Present Illness Initial Comments: This is a 34-year-old female DF for evaluation of facial injury. She was trying to push a drawer shut her hand slipped off the drawer she fell forward hitting her head on the counter. She did hit her top to suicidal bottom lip no significant bleeding was complaining of some pain to all of her teeth in her mouth. No loss of consciousness no other injuries noted minimal bleeding from her lower lip -: minutes(s) Location: face Place: home Patient Tetanus UTD: Yes Context: accidental Associated Symptoms: pain - Related Data Home Medications Medication Instructions Recorded Confirmed Ibuprofen [Motrin] 800 mg PO TID PRN 10/16/18 10/16/18 PARoxetine [Paxil] 10 mg PO HS 10/16/18 10/16/18 Previous Rx's Medication Instructions Recorded Albuterol Inhaler (Mhu) [Ventolin 1 - 2 puff INHALATION RT-Q6H PRN 06/24/18 Hfa Inhaler (Mhu)] #1 inhaler Amoxicillin/Potassium Clav 1 tab PO Q12HR 10 Days #20 tab 10/16/18 [Augmentin 875-125 Tablet] Ibuprofen 800 mg PO Q8H PRN 7 Days #21 tablet 10/16/18 Ondansetron Odt [Zofran Odt] 4 mg PO Q12HR PRN 2 Days #4 tab 10/16/18 Bacitracin Zinc Oint 28.4 gm TOPICAL BID 10 Days #1 tube 01/25/19 Amoxicillin 875 mg PO Q12HR #20 tablet 06/15/19 guaiFENesin-DM 600/30MG [Mucinex 1 each PO Q12HR #10 tab.er.12h 06/15/19 Dm] predniSONE 50 mg PO DAILY #5 tablet 06/15/19 methylPREDNISolone [Medrol Dose 4 mg PO DIRECTED #1 pack 10/08/19 Pack] Allergies Allergy/AdvReac Type Severity Reaction Status Date / Time azithromycin Allergy Rash/Hives Verified 03/17/20 12:07 [From Zithromax Z-Isauro] cephalexin monohydrate Allergy Rash/Hives Verified 03/17/20 12:07 [From Keflex] sulfamethoxazole Allergy Rash/Hives Verified 03/17/20 12:07 [From Bactrim] trimethoprim [From Bactrim] Allergy Rash/Hives Verified 03/17/20 12:07 Review of Systems ROS Statement: Those systems with pertinent positive or pertinent negative responses have been documented in the HPI. ROS Other: All systems not noted in ROS Statement are negative. Past Medical History Past Medical History: Asthma Additional Past Medical History / Comment(s): migraine, ovarian cyst, in- operable fibroid tumor in uterus, History of Any Multi-Drug Resistant Organisms: C-DIFF Date of last positivie culture/infection: 01/2015 Past Surgical History: Appendectomy, Breast Surgery Additional Past Surgical History / Comment(s): BENIGN TUMOR REMOVED FROM BREAST Past Anesthesia/Blood Transfusion Reactions: No Reported Reaction Past Psychological History: Anxiety, Depression Smoking Status: Current every day smoker Past Alcohol Use History: Rare Past Drug Use History: None Reported - Past Family History Mother Family Medical History: No Reported History General Exam - General Exam Comments Initial Comments: Patient's face and teeth are evaluated no teeth appear to be loose able to move jaw freely Limitations: no limitations General appearance: alert, in no apparent distress Head exam: Present: normocephalic, normal inspection. Absent: atraumatic (Patient does have laceration to mucous membrane of upper lip) Eye exam: Present: normal appearance, PERRL, EOMI. Absent: scleral icterus, conjunctival injection, periorbital swelling ENT exam: Present: normal exam, mucous membranes moist Neck exam: Present: normal inspection. Absent: tenderness, meningismus, lymphadenopathy Respiratory exam: Present: normal lung sounds bilaterally. Absent: respiratory distress, wheezes, rales, rhonchi, stridor Cardiovascular Exam: Present: regular rate, normal rhythm, normal heart sounds. Absent: systolic murmur, diastolic murmur, rubs, gallop, clicks GI/Abdominal exam: Present: soft, normal bowel sounds. Absent: distended, tenderness, guarding, rebound, rigid Extremities exam: Present: normal inspection, full ROM, normal capillary refill. Absent: tenderness, pedal edema, joint swelling, calf tenderness Back exam: Present: normal inspection Neurological exam: Present: alert, oriented X3, CN II-XII intact Psychiatric exam: Present: normal affect, normal mood Skin exam: Present: warm, dry, intact, normal color. Absent: rash Course Vital Signs 03/17/20 12:03 Temperature 98.5 F Pulse Rate 86 Respiratory 18 Rate Blood Pressure 142/90 O2 Sat by Pulse 96 Oximetry - Reevaluation(s) Reevaluation #1: 03/17/20 12:57 Medical records reviewed Reevaluation #2: 03/17/20 12:57 Secondary to placement of laceration being through lip for mucous membrane, well approximated and not currently bleeding 1 suture repair made Procedures - Laceration Laceration #1 Consent Obtained: verbal consent Indication: laceration Site: face Description: linear Depth: simple, single layer Anesthetic Used: lidocaine 1% Anesthesia Technique: local infiltration Type of Sutures: vicryl Size of Sutures: 5-0, 6-0 Technique: simple, interrupted Complications: pain Patient Tolerated Procedure: well Medical Decision Making - Medical Decision Making 34 female to the ER with lower lip laceration, laceration is just in the mucous membrane, lac is repaired. Patient can be discharged home Disposition Clinical Impression: Laceration, Laceration of lower lip Disposition: HOME SELF-CARE Condition: Good Instructions (If sedation given, give patient instructions): Laceration (ED), Facial Laceration (ED) Is patient prescribed a controlled substance at d/c from ED?: No Referrals: Margy Crowell DO [Primary Care Provider] - 1-2 days
[2020-03-17 13:46] VITALS: BP 146/80; PULSE 78; RESP 16; TEMP 98
== END 2020-03-17 13:46 | disposition home or self-care (01) ==
LOC: EC 11:53
DX: S01.511A Laceration without foreign body of lip, initial encounter (principal); F41.9 Anxiety disorder, unspecified; F32.9 Major depressive disorder, single episode, unspecified; F17.200 Nicotine dependence, unspecified, uncomplicated; Z79.899 Other long term (current) drug therapy; Z88.1 Allergy status to other antibiotic agents; Z88.2 Allergy status to sulfonamides; W01.198A Fall on same level from slipping, tripping and stumbling with subsequent striking against other object, initial encounter; Y92.69 Other specified industrial and construction area as the place of occurrence of the external cause; Y99.0 Civilian activity done for income or pay
CPT/HCPCS: 12011; 99283

== ENCOUNTER 2020-03-18 20:44 | Emergency (ER) | payer BC, OTHER ==
--- NOTE | 2020-03-18 21:04 | ED ---
Head Injury HPI - General Chief complaint: Head Injury Stated complaint: Nausea, Dizziness, Headache Time Seen by Provider: 03/18/20 21:04 Source: patient Mode of arrival: ambulatory Limitations: no limitations - History of Present Illness Initial comments: Patient is a 4-year-old female presenting to emergency Department with chief complaint of a headache. Patient states yesterday she was evaluated emergency department after she hit her head on the counter. Patient states she had a laceration to lip which was repaired but was sent home,. Patient states she continues to have pain in the pain facial pain along with some lightheadedness. Patient states she was speaking with her coworker today and felt like she was "zoning out". She denies any loss of consciousness. Denies any visual changes, one-sided weakness or paresthesias. She reports taking ibuprofen 800 with minimal improvement in symptoms. - Related Data Home Medications Medication Instructions Recorded Confirmed Ibuprofen [Motrin] 800 mg PO TID PRN 10/16/18 10/16/18 PARoxetine [Paxil] 10 mg PO HS 10/16/18 10/16/18 Previous Rx's Medication Instructions Recorded Albuterol Inhaler (Mhu) [Ventolin 1 - 2 puff INHALATION RT-Q6H PRN 06/24/18 Hfa Inhaler (Mhu)] #1 inhaler Amoxicillin/Potassium Clav 1 tab PO Q12HR 10 Days #20 tab 10/16/18 [Augmentin 875-125 Tablet] Ibuprofen 800 mg PO Q8H PRN 7 Days #21 tablet 10/16/18 Ondansetron Odt [Zofran Odt] 4 mg PO Q12HR PRN 2 Days #4 tab 10/16/18 Bacitracin Zinc Oint 28.4 gm TOPICAL BID 10 Days #1 tube 01/25/19 Amoxicillin 875 mg PO Q12HR #20 tablet 06/15/19 guaiFENesin-DM 600/30MG [Mucinex 1 each PO Q12HR #10 tab.er.12h 06/15/19 Dm] predniSONE 50 mg PO DAILY #5 tablet 06/15/19 methylPREDNISolone [Medrol Dose 4 mg PO DIRECTED #1 pack 10/08/19 Pack] Allergies/Adverse reactions: Allergies Allergy/AdvReac Type Severity Reaction Status Date / Time azithromycin Allergy Rash/Hives Verified 03/18/20 20:59 [From Zithromax Z-Isauro] cephalexin monohydrate Allergy Rash/Hives Verified 03/18/20 20:59 [From Keflex] sulfamethoxazole Allergy Rash/Hives Verified 03/18/20 20:59 [From Bactrim] trimethoprim [From Bactrim] Allergy Rash/Hives Verified 03/18/20 20:59 Review of Systems ROS Statement: Those systems with pertinent positive or pertinent negative responses have been documented in the HPI. ROS Other: All systems not noted in ROS Statement are negative. Past Medical History Past Medical History: Asthma Additional Past Medical History / Comment(s): migraine, ovarian cyst, in- operable fibroid tumor in uterus, History of Any Multi-Drug Resistant Organisms: C-DIFF Date of last positivie culture/infection: 01/2015 Past Surgical History: Appendectomy, Breast Surgery Additional Past Surgical History / Comment(s): BENIGN TUMOR REMOVED FROM BREAST Past Anesthesia/Blood Transfusion Reactions: No Reported Reaction Past Psychological History: Anxiety, Depression Smoking Status: Current every day smoker Past Alcohol Use History: Rare Past Drug Use History: None Reported - Past Family History Mother Family Medical History: No Reported History General Exam Limitations: no limitations Course Vital Signs 03/18/20 03/18/20 20:55 22:38 Temperature 98.8 F 97 F L Pulse Rate 106 H 66 Respiratory 20 16 Rate Blood Pressure 143/80 138/87 O2 Sat by Pulse 95 100 Oximetry Medical Decision Making - Medical Decision Making Patient is a 34-year-old female presenting to the emergency room with a chief complaint of a headache. Patient has been experiencing intermittent episodes of lightheadedness and dizziness as well as "zoning out" tissue. Physical examination reveals a well-healing lip laceration. Neurological examination is unremarkable. CT of the brain and C-spine was not performed yesterday but I did order one today which showed no significant findings. Considering the patient's symptoms suspect she suffered a concussion and is now extremely to some of the symptoms. Patient given extensive instructions regarding concussions and what to expect. Return parameters were thoroughly discussed with patient was understanding and agreeable. She was advised to have mental and physical rest for the next week. Case discussed with physician. Disposition Clinical Impression: Head injury, Concussion Disposition: HOME SELF-CARE Condition: Stable Instructions (If sedation given, give patient instructions): Concussion (ED) Additional Instructions: Follow with her primary care physician. Return to emergency department if symptoms worsen. Is patient prescribed a controlled substance at d/c from ED?: No Referrals: Margy Crowell DO [Primary Care Provider] - 1-2 days Time of Disposition: 22:19
--- NOTE | 2020-03-18 22:02 | CT ---
EXAMINATION TYPE: CT brain cspine wo con DATE OF EXAM: 03/18/2020 COMPARISON: None HISTORY: dizziness and nausea following head injury Neck pain CT DLP: 1805.8 mGycm Automated exposure control for dose reduction was used. Ventricles and sulci appear normal. There is no mass effect nor midline shift. There is no sign of in tracranial hemorrhage. Calvarium is intact. There is no evidence of cerebral edema. Cervical vertebra have normal spacing and alignment. Posterior elements are intact. There is intact s kull base. There is normal aeration of the mastoid air cells. IMPRESSION: Normal CT scan of the cervical spine. Normal CT scan of the brain.
[2020-03-18 22:39] VITALS: BP 138/87; PULSE 66; RESP 16; TEMP 97
== END 2020-03-18 22:33 | disposition home or self-care (01) ==
LOC: EC 20:44
DX: S06.0X0D Concussion without loss of consciousness, subsequent encounter (principal); S01.511D Laceration without foreign body of lip, subsequent encounter; F41.9 Anxiety disorder, unspecified; F32.9 Major depressive disorder, single episode, unspecified; F17.200 Nicotine dependence, unspecified, uncomplicated; Z79.899 Other long term (current) drug therapy; Z88.1 Allergy status to other antibiotic agents; Z88.2 Allergy status to sulfonamides; W18.09XD Striking against other object with subsequent fall, subsequent encounter; Y92.009 Unspecified place in unspecified non-institutional (private) residence as the place of occurrence of the external cause
CPT/HCPCS: 70450; 72125; 99283

== ENCOUNTER 2020-06-10 09:51 | Emergency (ER) | payer BC ==
[2020-06-10 10:13] VITALS: TEMP 98.9
[2020-06-10] MEDS ORDERED: SODIUM CHLORIDE 0.9% 1,000 ML IV ONE (10:37)
[2020-06-10] MEDS ORDERED: SODIUM CHLORIDE 0.9% 1,000 ML IV SCH (10:45)
--- NOTE | 2020-06-10 10:53 | ED ---
URI HPI - General Chief Complaint: Upper Respiratory Infection Stated Complaint: cough Time Seen by Provider: 06/10/20 10:17 Source: patient Mode of arrival: ambulatory Limitations: no limitations - History of Present Illness Initial Comments: 35-year-old feel presents for multiple complaints. Patient states that she has had congestion sinus pressure for the past week she states she is put on Augmentin and began taking it Saturday. Patient states that she has had some chest discomfort on and off especially after coughing. Patient denies any leg swelling calf pain history of DVT or pulmonary embolism. She denies any chest pressure. Patient states at times feels slightly short of breath and has history of asthma. Endorses body aches. Patient denies nausea vomiting diarrhea she denies jaw or arm pain. Patient appeared well on arrival nontoxic in no acute distress. Pt concerned of covid. - Related Data Home Medications Medication Instructions Recorded Confirmed Albuterol Sulfate [Ventolin HFA] 1 - 2 puff INHALATION RT-QID PRN 06/10/20 06/10/20 Amoxicillin/Potassium Clav 1 tab PO BID 06/10/20 06/10/20 [Augmentin 875-125 Tablet] Ascorbic Acid [Vitamin C] 1,000 mg PO DAILY 06/10/20 06/10/20 Cyclobenzaprine [Flexeril] 10 mg PO DAILY 06/10/20 06/10/20 Doxycycline Hyclate 100 mg PO BID 06/10/20 06/10/20 Ibuprofen [Motrin Ib] 200 - 800 mg PO Q8H PRN 06/10/20 06/10/20 PARoxetine HCL 40 mg PO HS 06/10/20 06/10/20 predniSONE See Taper PO DIRECTED 06/10/20 06/10/20 Previous Rx's Medication Instructions Recorded Albuterol Inhaler [Ventolin Hfa 1 puff INHALATION RT-QID PRN 30 06/10/20 Inhaler] Days #60 puff predniSONE 50 mg PO DAILY 5 Days #5 tab 06/10/20 Allergies Allergy/AdvReac Type Severity Reaction Status Date / Time azithromycin Allergy Rash/Hives Verified 06/10/20 10:52 [From Zithromax Z-Isauro] cephalexin monohydrate Allergy Rash/Hives Verified 06/10/20 10:52 [From Keflex] sulfamethoxazole Allergy Rash/Hives Verified 06/10/20 10:52 [From Bactrim] trimethoprim [From Bactrim] Allergy Rash/Hives Verified 06/10/20 10:52 Review of Systems ROS Statement: Those systems with pertinent positive or pertinent negative responses have been documented in the HPI. ROS Other: All systems not noted in ROS Statement are negative. 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, History of Any Multi-Drug Resistant Organisms: C-DIFF Date of last positivie culture/infection: 01/2015 Past Surgical History: Appendectomy, Breast Surgery Additional Past Surgical History / Comment(s): BENIGN TUMOR REMOVED FROM BREAST Past Anesthesia/Blood Transfusion Reactions: No Reported Reaction Past Psychological History: Anxiety, Depression Smoking Status: Former smoker Past Alcohol Use History: Rare Past Drug Use History: None Reported - Past Family History Mother Family Medical History: No Reported History General Exam - General Exam Comments Initial Comments: General: The patient is awake and alert, in no distress, and does not appear acutely ill. Eye: Pupils are equal, round and reactive to light, extra-ocular movements are intact. No nystagmus. There is normal conjunctiva bilaterally. No signs of icterus. Ears, nose, mouth and throat: There are moist mucous membranes and no oral lesions. Neck: The neck is supple, there is no tenderness or JVD. Cardiovascular: There is a regular rate and rhythm. No murmur, rub or gallop is appreciated. Respiratory: Lungs are clear to auscultation, respirations are non-labored, breath sounds are equal. No wheezes, stridor, rales, or rhonchi. Gastrointestinal: Soft, non-distended, non-tender abdomen without masses or organomegaly noted. There is no rebound or guarding present. Musculoskeletal: Normal ROM, no tenderness. Strength 5/5. Sensation intact. Pulses equal bilaterally 2+. Neurological: A&O x 3. CN II-XII intact, There are no obvious motor or sensory deficits. Coordination appears grossly intact. Speech is normal. Skin: Skin is warm and dry and no rashes or lesions are noted. No LE edema or calf pain. Psychiatric: Cooperative, appropriate mood & affect, normal judgment. Limitations: no limitations Course Vital Signs 06/10/20 06/10/20 06/10/20 10:10 11:10 12:22 Temperature 98.9 F Pulse Rate 115 H 98 Respiratory 22 16 18 Rate Blood Pressure 143/92 O2 Sat by Pulse 97 99 Oximetry 06/10/20 06/10/20 06/10/20 12:38 12:45 13:06 Temperature Pulse Rate 84 78 89 Respiratory 16 Rate Blood Pressure 123/73 O2 Sat by Pulse 99 Oximetry Medical Decision Making - Medical Decision Making Leukocytosis, no focalized infiltrate. pt afebrile. covid (-) dimer (-) troponin (-). EKG no acute changes. Patient given 1 albuterol treatment, will be discharged with inhaler refill and steroids. is to return for worsening symptoms and to take antibiotics as directed by previosu prescriber. > North agreeable to care plan and discharge. - Lab Data Result diagrams: 06/10/20 10:51 06/10/20 10:51 Lab Results 06/10/20 06/10/20 06/10/20 Range/Units 10:51 10:51 10:51 WBC 14.4 H (3.8-10.6) k/uL RBC 4.85 (3.80-5.40) m/uL Hgb 14.6 (11.4-16.0) gm/dL Hct 43.2 (34.0-46.0) % MCV 89.0 (80.0-100.0) fL MCH 30.1 (25.0-35.0) pg MCHC 33.9 (31.0-37.0) g/dL RDW 12.7 (11.5-15.5) % Plt Count 300 (150-450) k/uL MPV 7.0 Neutrophils % 79 % Lymphocytes % 9 % Monocytes % 4 % Eosinophils % 5 % Basophils % 1 % Neutrophils # 11.3 H (1.3-7.7) k/uL Lymphocytes # 1.4 (1.0-4.8) k/uL Monocytes # 0.6 (0-1.0) k/uL Eosinophils # 0.8 H (0-0.7) k/uL Basophils # 0.1 (0-0.2) k/uL PT 10.2 (9.0-12.0) sec INR 1.0 (<1.2) APTT 25.4 (22.0-30.0) sec D-Dimer 0.29 (<0.60) mg/L FEU Sodium 136 L (137-145) mmol/L Potassium 4.5 (3.5-5.1) mmol/L Chloride 103 (98-107) mmol/L Carbon Dioxide 27 (22-30) mmol/L Anion Gap 6 mmol/L BUN 10 (7-17) mg/dL Creatinine 0.68 (0.52-1.04) mg/dL Est GFR (CKD-EPI)AfAm >90 (>60 ml/min/1.73 sqM) Est GFR (CKD-EPI)NonAf >90 (>60 ml/min/1.73 sqM) Glucose 90 (74-99) mg/dL Calcium 9.0 (8.4-10.2) mg/dL Total Bilirubin 0.4 (0.2-1.3) mg/dL AST 18 (14-36) U/L ALT 13 (4-34) U/L Alkaline Phosphatase 84 (38-126) U/L Troponin I (0.000-0.034) ng/mL Total Protein 6.9 (6.3-8.2) g/dL Albumin 3.9 (3.5-5.0) g/dL Coronavirus (PCR) (Not Detectd) 06/10/20 06/10/20 Range/Units 10:51 10:52 WBC (3.8-10.6) k/uL RBC (3.80-5.40) m/uL Hgb (11.4-16.0) gm/dL Hct (34.0-46.0) % MCV (80.0-100.0) fL MCH (25.0-35.0) pg MCHC (31.0-37.0) g/dL RDW (11.5-15.5) % Plt Count (150-450) k/uL MPV Neutrophils % % Lymphocytes % % Monocytes % % Eosinophils % % Basophils % % Neutrophils # (1.3-7.7) k/uL Lymphocytes # (1.0-4.8) k/uL Monocytes # (0-1.0) k/uL Eosinophils # (0-0.7) k/uL Basophils # (0-0.2) k/uL PT (9.0-12.0) sec INR (<1.2) APTT (22.0-30.0) sec D-Dimer (<0.60) mg/L FEU Sodium (137-145) mmol/L Potassium (3.5-5.1) mmol/L Chloride (98-107) mmol/L Carbon Dioxide (22-30) mmol/L Anion Gap mmol/L BUN (7-17) mg/dL Creatinine (0.52-1.04) mg/dL Est GFR (CKD-EPI)AfAm (>60 ml/min/1.73 sqM) Est GFR (CKD-EPI)NonAf (>60 ml/min/1.73 sqM) Glucose (74-99) mg/dL Calcium (8.4-10.2) mg/dL Total Bilirubin (0.2-1.3) mg/dL AST (14-36) U/L ALT (4-34) U/L Alkaline Phosphatase (38-126) U/L Troponin I <0.012 (0.000-0.034) ng/mL Total Protein (6.3-8.2) g/dL Albumin (3.5-5.0) g/dL Coronavirus (PCR) Not Detected (Not Detectd) Disposition Clinical Impression: Cough, Congestion of nasal sinus, Discomfort in chest Disposition: HOME SELF-CARE Condition: Good Instructions (If sedation given, give patient instructions): Upper Respiratory Infection (ED) Additional Instructions: Please use medication as discussed. Please follow-up with family doctor in the next 2 days. Please return to emergency room if the symptoms increase or worsen or for any other concerns. Prescriptions: predniSONE 50 mg PO DAILY 5 Days #5 tab Albuterol Inhaler [Ventolin Hfa Inhaler] 1 puff INHALATION RT-QID PRN 30 Days #60 puff PRN Reason: Wheezing Is patient prescribed a controlled substance at d/c from ED?: No Referrals: Margy Crowell DO [Primary Care Provider] - 1-2 days Time of Disposition: 11:48
[2020-06-10 11:13] LABS: Basophils # (A) 0.1 k/uL (0-0.2); Basophils % (A) 1 %; Eosinophils # (A) 0.8 k/uL (0-0.7); Eosinophils % (A) 5 %; HCT 43.2 % (34.0-46.0); HGB 14.6 gm/dL (11.4-16.0); Lymphocytes # (A) 1.4 k/uL (1.0-4.8); Lymphocytes % (A) 9 %; MCH 30.1 pg (25.0-35.0); MCHC 33.9 g/dL (31.0-37.0); Monocytes # (A) 0.6 k/uL (0-1.0); Monocytes % (A) 4 %; Neutrophils # (A) 11.3 k/uL (1.3-7.7); Neutrophils % (A) 79 %; Platelet Count 300 k/uL (150-450); RBC 4.85 m/uL (3.80-5.40); RDW 12.7 % (11.5-15.5); WBC 14.4 k/uL (3.8-10.6)
[2020-06-10 11:30] LABS: ALT 13 U/L (4-34); AST 18 U/L (14-36); African American GFR (CKD) >90 (>60 ml/min/1.73 sqM); Albumin 3.9 g/dL (3.5-5.0); Alkaline Phosphatase 84 U/L (38-126); Anion Gap 6 mmol/L; Blood Urea Nitrogen 10 mg/dL (7-17); Carbon Dioxide 27 mmol/L (22-30); Chloride 103 mmol/L (98-107); Glucose 90 mg/dL (74-99); Non-African American GFR(CKD) >90 (>60 ml/min/1.73 sqM); Potassium 4.5 mmol/L (3.5-5.1); Sodium 136 mmol/L (137-145); Total Bilirubin 0.4 mg/dL (0.2-1.3); Total Protein 6.9 g/dL (6.3-8.2)
[2020-06-10 11:38] LABS: D-Dimer 0.29 mg/L FEU (<0.60); Partial Thromboplastin Time 25.4 sec (22.0-30.0); Prothrombin Time 10.2 sec (9.0-12.0)
--- NOTE | 2020-06-10 11:38 | XR ---
EXAMINATION TYPE: XR chest 2V DATE OF EXAM: 06/10/2020 COMPARISON: 10/08/2019 TECHNIQUE: PA and lateral views submitted. HISTORY: Cough FINDINGS: The lungs are clear and there is no pneumothorax, pleural effusion, or focal pneumonia. Heart size stable. No overt failure. Slightly prominent interstitial perihilar markings IMPRESSION: 1. Correlate for bronchitis or possibly mild interstitial pneumonitis..
[2020-06-10] MEDS ORDERED: ALBUTEROL NEBULIZED 2.5 MG/3 ML INHALATION STA (12:21)
[2020-06-10 13:07] VITALS: BP 123/73; PULSE 89; RESP 16
== END 2020-06-10 13:06 | disposition home or self-care (01) ==
LOC: EC 09:51
DX: R07.89 Other chest pain (principal); R09.81 Nasal congestion; R05 Cough; D72.829 Elevated white blood cell count, unspecified; J45.909 Unspecified asthma, uncomplicated; G43.909 Migraine, unspecified, not intractable, without status migrainosus; F41.9 Anxiety disorder, unspecified; F32.9 Major depressive disorder, single episode, unspecified; Z79.51 Long term (current) use of inhaled steroids; Z79.899 Other long term (current) drug therapy; Z87.891 Personal history of nicotine dependence; Z88.1 Allergy status to other antibiotic agents; Z88.2 Allergy status to sulfonamides; Z20.828 Contact with and (suspected) exposure to other viral communicable diseases
CPT/HCPCS: 36415; 71046; 80053; 84484; 85025; 85379; 85610; 85730; 87635; 93005; 94640; 96360; 96361; 99284